=== PATIENT | female | born 1970 | race Caucasian/White ===

== ENCOUNTER → 2019-05-19 15:40 | Outpatient (CLI) | payer MEDICARE, OTHER, SELFPAY ==
[2019-05-19 19:54] LABS: Amphetamine/Metha Screen,Urine Negative ng/ml (<1000); Barbiturates Screen,Urine Negative ng/ml (<200)
[2019-05-19 19:55] LABS: Benzodiazepines Screen,Urine Negative ng/ml (<200)
[2019-05-19 19:56] LABS: Cannabinoid Screen,Urine Negative ng/ml (<50); Cocaine Screen,Urine Negative ng/ml (<300)
[2019-05-19 19:57] LABS: Methadone Screen,Urine Negative ng/ml (<300)
[2019-05-19 19:58] LABS: Opiate Screen,Urine Negative ng/ml (<300); Phencyclidine Screen,Urine Negative ng/ml (<25)
== END ==
PROVIDERS: Visit Provider Nurse Practitioner Family
DX: M25.559 Pain in unspecified hip (principal); Z79.899 Other long term (current) drug therapy
CPT/HCPCS: 80305

== ENCOUNTER → 2019-06-13 08:42 | Outpatient (CLI) | payer MEDICARE, OTHER, SELFPAY ==
--- NOTE | 2019-06-13 08:49 | XR_ITS ---
PROCEDURE: XR HIP RT 2-3V W/PELVIS CLINICAL INDICATION: hip pain Right hip pain COMPARISON: No exams were available for comparison FINDINGS: There are mild osteoarthritic changes of the right hip with some decrease in the joint space and osteophyte formation along the superior and inferior aspect of the acetabulum and femoral head. No fracture or dislocation. No lytic or blastic change. There is some faint increased density over the right iliac fossa which could be due to overlying suture line. Incidental note also made of mild osteoarthritic change of the left hip. IMPRESSION: Osteoarthritis of the hips Dictated by: Kalpesh Hunt MD 06/13/2019 09:46 Electronically signed by Kalpesh Hunt MD in [place] 06/13/2019 09:46
--- NOTE | 2019-06-13 10:05 | XR_ITS ---
PROCEDURE: XR LUMBAR SPINE 2-3V CLINICAL INDICATION: AP Lateral WB COMPARISON: No exams were available for comparison FINDINGS: There is mild levoscoliosis of the lumbar spine. Small anterior osteophytes are present at L2-L3 and L4 with mild degenerative disc disease noted at L4-5. No acute fracture or dislocation. IMPRESSION: Mild degenerative changes, no acute finding Dictated by: Kalpesh Hunt MD 06/13/2019 11:46 Electronically signed by Kalpesh Hunt MD in [place] 06/13/2019 11:46
== END ==
PROVIDERS: PCP Nurse Practitioner Family; Visit Provider Orthopaedic Surgery
DX: M54.9 Dorsalgia, unspecified; M25.551 Pain in right hip
CPT/HCPCS: 72100; 73502

== ENCOUNTER → 2019-06-18 10:20 | Outpatient (CLI) | payer MEDICARE, OTHER, SELFPAY ==
[2019-06-18 10:46] LABS: Basophils # 0.1 K/mm3 (0-0.2); Basophils % 0.5 % (0.1-2.0); Eosinophils # 0.3 K/mm3 (0.0-0.4); Eosinophils % 3.4 % (0.1-12.0); Hematocrit 47.7 % (37.0-47.0); Hemoglobin 14.9 g/dL (12.2-16.2); Lymphocytes # 1.8 K/mm3 (0.7-4.5); Lymphocytes % 18.5 % (10-50); Mean Corpuscular HGB Conc 31.3 g/dL (31.8-35.4); Mean Corpuscular Hemoglobin 30.4 pg (27.0-31.2); Mean Platelet Volume 7.7 fl (7.4-10.4); Monocytes # 0.3 K/mm3 (0.1-1.0); Monocytes % 3.4 % (1.7-9.3); Neutrophils # 7.2 K/mm3 (1.8-7.8); Neutrophils % 74.2 % (37.0-80.0); Platelet Count 222 K/mm3 (142-424); Red Blood Count 4.92 M/mm3 (4.20-5.40); Red Cell Distribution Width 13.3 % (11.5-17.5); White Blood Count 9.7 K/mm3 (4.8-10.8)
[2019-06-18 11:31] LABS: Alanine Aminotransferase 18 U/L (12-78); Albumin Level 4.7 g/dl (3.5-5.0); Albumin/Globulin Ratio 1.8 (1.1-1.8); Alkaline Phosphatase 77 U/L (38-126); Aspartate Amino Transferase 25 U/L (14-36); Bilirubin,Total 0.2 mg/dl (0.2-1.3); Blood Urea Nitrogen 9 mg/dl (7-17); Calcium 10.1 mg/dl (8.4-10.2); Carbon Dioxide 31 mmol/L (22.0-30.0); Chloride 103 mmol/L (98-107); Chol/HDL Ratio 3.3 (1-3.5); Cholesterol 200 mg/dl (140-200); Estimated Glomerular Filt Rate 131 ml/min (>60); GFR (African American) 158 ML/MIN (>60); Globulin 2.6 g/dL (1.3-3.2); Glucose 88 mg/dl (74-100); HDL Cholesterol 60 mg/dl (40-60); Sodium 138 mmol/L (136-145); Total Protein,Serum 7.3 g/dl (6.3-8.2); Triglycerides 148 mg/dl (30-150); VLDL Cholesterol 30 mg/dL (0-40)
[2019-06-18 11:42] LABS: Direct LDL Cholesterol 130.22 mg/dL (100-129)
[2019-06-18 12:02] LABS: Thyroid Stimulating Hormone 1.39 uIU/mL (0.465-4.68)
[2019-06-19 12:56] LABS: Vitamin D 25 Hydroxy 30.5 ng/mL (30.0-100.0)
== END ==
PROVIDERS: Visit Provider Nurse Practitioner Family
DX: M54.9 Dorsalgia, unspecified (principal); E78.5 Hyperlipidemia, unspecified; Z01.89 Encounter for other specified special examinations; R53.83 Other fatigue
CPT/HCPCS: 36415; 80053; 80061; 82652; 84443; 85025

== ENCOUNTER → 2019-06-24 10:36 | Outpatient (POV) | payer MEDICARE, OTHER, SELFPAY ==
[2019-06-24 11:07] VITALS: BP 127/95; PULSE 69; RESP 18; TEMP 36.6; O2SAT 96; BMI 25.7
--- NOTE | 2019-06-24 11:30 | HMH.PMCON ---
Assessment and Plan (1) Degenerative joint disease (DJD) of lumbar spine Current visit: Yes Status: Chronic Qualifiers: Spinal osteoarthritis complication: with radiculopathy Qualified Code(s): M47.26 - Other spondylosis with radiculopathy, lumbar region Category: Medical Code(s): M47.816 - Spondylosis without myelopathy or radiculopathy, lumbar region (2) Lumbar radiculopathy Current visit: Yes Status: Chronic Category: Medical Code(s): M54.16 - Radiculopathy, lumbar region - Assessment and plan all Dx Assessment and Plan for all problems:: We will see the patient back if she is interested in interventional therapies. At this point if she can be maintained on a gabapentin regimen I do believe that that is appropriate. Dr. Cohen has reviewed this note and agrees with this plan of care. This note was dictated using voice recognition software and may contain errors or omissions HPI - Data of Consult Consult date: 06/24/19 Requesting Physician: Mikala Andre APRN Primary Care Provider: Terry Harrington APRN - Consult Narrative Reason for consult: Pain History of present illness: Ms. Farris is a 49 year old female who presents today for consultation in regards to her low back and leg pain. Patient states she is had pain for many years. She is to be in pain management at however she quit some time ago due to the fact that she did not like the injection she was receiving. Patient said that she was managed well on gabapentin 800 mg 1 p.o. 3 times daily. Patient's Saturnino reflects this. Patient and I discussed potential injections and she is uninterested in moving forward with this. Patient can be maintained on a gabapentin regimen with good success and she has appropriate drug screens this should be beneficial for her. I did discuss with her that she could discuss this with her primary care physician but this is an appropriate dosing of medication. She rates her pain today a 9 out of 10 CC: Mikala Andre APRN [facility] History I have reviewed the patient's past medical history: Yes Medical History: Reports:: Asthma, Chronic Obstructive Pulmonary Disease (COPD), Depression, Gastroesophageal Reflux Disease(GERD), Hyperlipidemia, Hypertension Denies:: Cancer, Diabetes Mellitus Type 1, Diabetes Mellitus Type 2, MRSA *Have you ever received a pneumonia vaccine?: No *Have you received a flu vaccine this season?: No Laterality Cases: Bilateral: Carpal Tunnel Release Other Surgeries: Yes: Cholecystectomy, Hernia Repair, Other Amputation: No Fractures: Yes - *Social History Smoking Status: Current every day smoker Tobacco Type: cigarettes # Packs/Day (cigarettes): 1 Alcohol Intake: never Substance Use Type: denies use *Occupational Status:: unemployed Housing: house Household Members: other *Travel in the last 8 weeks: None - Psychiatric History Pschychiatric History:: Reports:: Depression Family Hx:: Heart Attack, Stroke Review of Systems - Review of Systems ROS General: no recent weight change, no fever, no sleep disturbances Respiratory: no cough, no shortness of air, no recurring pulmonary infections Cardiovascular/Peripheral Vascular: No chest pain, No palpitations, no edema, no shortness of breath. Gastrointestinal: no new onset incontinence, normal bowel movements reported Genitourinary: no new onset incontinence Musculoskeletal: Back pain, leg pain Psychiatric: normal mood/ affect Neurological: [denies new onset weakness in extremities], [denies new onset balance issues] Meds Home Medications Medication Instructions Recorded Confirmed Type albuterol sulfate 90 mcg/actuation 2 inh INHALATION Q6H PRN #6.7 g 04/29/19 06/24/19 Rx aerosol inhaler cyclobenzaprine 10 mg tablet 10 mg PO TID PRN #90 tab 06/17/19 06/24/19 Rx Atorvastatin Calcium [Atorvastatin 20 mg PO DAILY 06/24/19 06/24/19 History 20mg Tab] Gabapentin 600 mg PO TID 06/24/19 06/24/19 History
== END ==
PROVIDERS: PCP Nurse Practitioner Family; Visit Provider Clinical Nurse Specialist Family Health
DX: M47.26 Other spondylosis with radiculopathy, lumbar region (principal)
CPT/HCPCS: 99202

== ENCOUNTER → 2019-07-09 12:46 | Outpatient (CLI) | payer MEDICARE, OTHER, SELFPAY ==
[2019-07-09 14:55] VITALS: PULSE 64; PULSE 70
== END ==
PROVIDERS: PCP Nurse Practitioner Family; Visit Provider Nurse Practitioner Family
DX: R06.02 Shortness of breath (principal)
CPT/HCPCS: 94060; 94618; 94640; 94726; 94729

== ENCOUNTER 2019-11-09 11:57 | Emergency (ER) | payer MEDICARE, OTHER, SELFPAY ==
[2019-11-09 12:09] VITALS: BMI 26.6
--- NOTE | 2019-11-09 12:09 | XR_ITS ---
PROCEDURE: XR ANKLE LT MIN 3V CLINICAL INDICATION: INJURY Injury with pain COMPARISON: CR XR TIBIA FIBULA LT 2V from 11/09/2019 CR XR FOOT LT MIN 3V from 11/09/2019 FINDINGS: There is a nondisplaced transverse fracture involving the distal fibula. This is at the epiphyseal region at the level of the ankle joint space. No significant displacement or angulation. The ankle mortise does not appear widened. The proximal mid aspect of the tibia and fibula have an unremarkable appearance. IMPRESSION: Displaced fracture of the distal fibula as described above Dictated by: Kalpesh Hunt MD 11/09/2019 15:05 Kalpesh Hunt MD in [place] 11/09/2019 15:05
--- NOTE | 2019-11-09 12:09 | XR_ITS ---
PROCEDURE: XR FOOT LT MIN 3V CLINICAL INDICATION: INJURY Posttraumatic pain and bruising COMPARISON: CR XR ANKLE LT MIN 3V from 11/09/2019 FINDINGS: There is deformity of the distal aspect of the 1st metatarsal which may be related to prior surgery/bunionectomy with osteoarthritic changes at the 1st MTP joint. On the AP view of the ankle there is a suggestion of avulsion along the medial aspect of the medial cuneiform. This is not duplicated on the foot images however, the positioning is somewhat different. Please correlate with patient's physical exam. IMPRESSION: 1. Prior bunionectomy with osteoarthritic change of the 1st MTP joint. 2. Questionable avulsion fracture of the medial aspect of the medial cuneiform as seen on the ankle images. CT may confirm Dictated by: Kalpesh Hunt MD 11/09/2019 15:08 Kalpesh Hunt MD in [place] 11/09/2019 15:08
[2019-11-09 12:10] VITALS: BP 125/89; PULSE 83; RESP 24; O2SAT 99; BMI 26.6
--- NOTE | 2019-11-09 12:17 | HMH.EDUTC ---
[facility] Disposition Clinical Impression: Fracture of distal fibula Qualifiers: Encounter type: initial encounter Fracture type: closed Fracture morphology: unspecified fracture morphology Laterality: left Qualified Code(s): S82.832A - Other fracture of upper and lower end of left fibula, initial encounter for closed fracture Disposition: Home, Self-Care Condition on Discharge: Good Instructions: DI for Ankle Fracture Additional Instructions: Call orthopedics for an appointment in the morning. Call early (between 8:30-9:00 am) so they can get you scheduled later in the week when swelling has gone down. Let them know I spoke with Dr Diop today. Absolutely no weight bearing on left ankle. Keep foot/ankle elevated and use ice several times today. Referrals: Anmol Doyle MD [Primary Care Provider] - Time of Disposition: 13:01 Medical Decision Making - Saturnino Inquiry Pt receiving controlled substance: No Vital Signs: 11/09/19 12:10 Pulse Rate [Right Brachial] 83 Respiratory Rate 24 Blood Pressure [Right Arm] 125/89 Blood Pressure Mean [Right Arm] 101 Blood Pressure Source [Right Arm] Automatic Cuff Blood Pressure Position [Right Arm] Sitting 02 Sat by Pulse Oximetry 99 Oxygen Delivery Method Room Air Orders (Tests/Meds): ED MEDICATIONS Discontinued Medications Generic Name Dose Route Start Last Admin Trade Name Freq PRN Reason Stop Dose Admin Hydrocodone Bitart/Acetaminophen 1 tab 11/09/19 12:54 [place] 7.5/325mg Tablet PO 11/09/19 12:55 ONCE ONE ORDERS Category Date Time Status Foot XR left minimum 3 views [XR foot LT min 3V] Stat Exams 11/09/19 12:09 Ordered XR ankle LT min 3V Stat Exams 11/09/19 12:09 Ordered XR tibia fibula LT 2V Stat Exams 11/09/19 12:09 Ordered - Radiology Data #1 Image(s): Tib/Fib Image Reviewed: Yes I reviewed the patient's radiology image Preliminary Findings: Abnormal (left distal fibula fx, minimally displaced) - Physician Consults Physician Consulted: Chikis Time: 12:45 Reason -: Orthopedic Eval/Care Comment/Response: Posterior ortho glass splint, ice, elevation, no weight bearing. Call office in am for follow up appt [facility] HPI - General Stated complaint: ao fell in hole 11/08/2019 Time Seen by Provider: 11/09/19 12:18 - History of Present Illness Provider Complaint: Fell in hole last night (11/07) around 2029. States her nephew helped her up and when she put weight on her foot she felt her bones crack. She went ahead and went to bed but was unable to bear weight today so came in. Pain in ankle on the left. Patient denies history of diabetes. She is treated for COPD and HTN. Onset (ago): day(s) (1) Location: left, lower extremity Relieving factors: none Exacerbating factors: none Associated symptoms: denies other symptoms Treatments prior to arrival: none - Related Data Previous Rx's Medication Instructions Recorded albuterol sulfate 90 mcg/actuation 2 inh INHALATION Q6H PRN #6.7 g 04/29/19 aerosol inhaler fluticasone furoate 100 1 inh INHALATION DAILY #28 each 07/25/19 mcg-vilanterol 25 mcg/dose inhalation powder tiotropium bromide 18 mcg capsule 1 cap INHALATION DAILY #30 puff 07/25/19 with inhalation device cetirizine 10 mg tablet 10 mg PO DAILY #30 tab 08/12/19 cyclobenzaprine 10 mg tablet 10 mg PO TID PRN #90 tab 08/12/19 gabapentin 800 mg tablet 800 mg PO TID #90 tab 08/12/19 omeprazole 40 mg capsule,delayed 40 mg PO DAILY #30 cap 08/12/19 release venlafaxine 75 mg capsule,extended 75 mg PO DAILY #90 cap 09/04/19 release 24 hr atorvastatin 20 mg tablet 20 mg PO DAILY #90 tab 10/06/19 levofloxacin 500 mg tablet 500 mg PO DAILY #7 tab 10/27/19 loratadine 10 mg tablet 10 mg PO DAILY #10 tab 10/27/19 prednisone 10 mg tablet 10 mg PO BID #6 tab 10/27/19 prednisone 20 mg tablet 20 mg PO BID #6 tab 10/27/19 Allergies Allergy/AdvReac Type Severity Reaction Status Date / Time No Known Allergies Allergy V
[2019-11-09 13:33] VITALS: BP 125/89; PULSE 83; RESP 24; TEMP 36.7; O2SAT 99
== END 2019-11-09 13:35 | disposition home or self-care (01) ==
PROVIDERS: Emergency Provider Physician Assistant; PCP Internal Medicine Adolescent Medicine
DX: S82.832A Other fracture of upper and lower end of left fibula, initial encounter for closed fracture (principal); W17.2XXA Fall into hole, initial encounter; Y92.017 Garden or yard in single-family (private) house as the place of occurrence of the external cause; J44.9 Chronic obstructive pulmonary disease, unspecified; I10 Essential (primary) hypertension; E78.5 Hyperlipidemia, unspecified; F33.1 Major depressive disorder, recurrent, moderate; K21.9 Gastro-esophageal reflux disease without esophagitis; F17.210 Nicotine dependence, cigarettes, uncomplicated; Z79.899 Other long term (current) drug therapy; Z90.49 Acquired absence of other specified parts of digestive tract
CPT/HCPCS: 29515; G0463; 73590; 73610; 73630; 99203

== ENCOUNTER → 2019-11-13 15:42 | Outpatient (CLI) | payer MEDICARE, OTHER, SELFPAY ==
--- NOTE | 2019-11-13 15:48 | XR_ITS ---
PROCEDURE: XR ANKLE LT MIN 3V Referring Doctor: Mary Cleveland Patient Age:49Y CLINICAL INDICATION: ankle fx fell on Sunday. Persistent bruising and swelling COMPARISON: CR XR TIBIA FIBULA LT 2V from 11/09/2019 CR XR ANKLE LT MIN 3V from 11/09/2019 FINDINGS: . slightly oblique transverse fracture of distal fibula again evident.. Of basically nondisplaced only 1 mm lateral offset of the distal fibular fragment on today's oblique view. There also is a vertical fracture through the posterior malleolus which is better appreciated on today's lateral view. Nondisplaced The medial malleolus appears intact and unremarkable. The dome of the talus intact. Relationships ankle mortise satisfactory.. Tiny fragment projected over the anterior aspect the joint the lateral view the noted could arise from the fibular fracture. Prominent soft tissue swelling is seen overlying the lateral malleolus. IMPRESSION: We again see the nondisplaced fracture distal fibula. Good apposition satisfactory position here The vertical fracture of the posterior malleolus is better appreciated on today's lateral Ankle mortise intact view Dictated by: Talha Brumfield MD 11/13/2019 17:21 Talha Brumfield MD in [place] 11/13/2019 17:21
== END ==
PROVIDERS: PCP Nurse Practitioner Family; Visit Provider Orthopaedic Surgery
DX: S82.839A Other fracture of upper and lower end of unspecified fibula, initial encounter for closed fracture (principal)
CPT/HCPCS: 73610

== ENCOUNTER → 2019-11-20 12:59 | Outpatient (CLI) | payer MEDICARE, OTHER, SELFPAY ==
--- NOTE | 2019-11-20 13:10 | XR_ITS ---
PROCEDURE: XR ANKLE LT MIN 3V CLINICAL INDICATION: out of splint Follow-up fracture COMPARISON: CR XR ANKLE LT MIN 3V from 11/09/2019 CR XR ANKLE LT MIN 3V from 11/13/2019 CR XR TIBIA FIBULA LT 2V from 11/20/2019 FINDINGS: There is a nondisplaced fracture involving the distal fibula at the level of the ankle joint. Nondisplaced longitudinal fracture involves the distal tibia posteriorly.. IMPRESSION: No change nondisplaced distal fibular and distal tibial fractures Dictated by: Kalpesh Hunt MD 11/20/2019 16:29 Kalpesh Hunt MD in [place] 11/20/2019 16:29
== END ==
PROVIDERS: PCP Nurse Practitioner Family; Visit Provider Orthopaedic Surgery
DX: S82.839A Other fracture of upper and lower end of unspecified fibula, initial encounter for closed fracture (principal)
CPT/HCPCS: 73590; 73610

== ENCOUNTER → 2019-12-01 12:59 | Outpatient (CLI) | payer MEDICARE, OTHER, SELFPAY ==
--- NOTE | 2019-12-01 13:05 | XR_ITS ---
PROCEDURE: XR ANKLE LT MIN 3V CLINICAL INDICATION: left ankle fracture COMPARISON: CR XR ANKLE LT MIN 3V from 11/20/2019 FINDINGS: There is faint callus formation seen at the lateral border of the distal fibular fracture when compared to the most recent study. The distal fibular fracture remains essentially nondisplaced. The distal tibial fracture is stable. The ankle mortise appears normal. IMPRESSION: Very early callus formation seen at the distal fibular fracture site, alignment remains satisfactory Dictated by: Dr. Boyd Clemens MD 12/01/2019 14:09 Dr. Boyd Clemens MD in [place] 12/01/2019 14:09
== END ==
PROVIDERS: PCP Nurse Practitioner Family; Visit Provider Orthopaedic Surgery
DX: S82.842A Displaced bimalleolar fracture of left lower leg, initial encounter for closed fracture (principal)
CPT/HCPCS: 73610

== ENCOUNTER → 2019-12-19 09:49 | Outpatient (CLI) | payer MEDICARE, OTHER, SELFPAY ==
--- NOTE | 2019-12-19 10:21 | XR_ITS ---
PROCEDURE: XR ANKLE LT MIN 3V CLINICAL INDICATION: Lt ankle FX FU Follow-up fracture COMPARISON: CR XR ANKLE LT MIN 3V from 11/09/2019 CR XR ANKLE LT MIN 3V from 11/13/2019 CR XR ANKLE LT MIN 3V from 11/20/2019 DX XR ANKLE LT MIN 3V from 12/01/2019 FINDINGS: There is a healing nondisplaced fracture involving the distal fibula with developing callus formation with good alignment. The ankle mortise does not appear widened. IMPRESSION: Healing distal fibular fracture Dictated by: Kalpesh Hunt MD 12/19/2019 10:39 Kalpesh Hunt MD in [place] 12/19/2019 10:39
== END ==
PROVIDERS: PCP Internal Medicine Adolescent Medicine; Visit Provider Orthopaedic Surgery
DX: S82.843A Displaced bimalleolar fracture of unspecified lower leg, initial encounter for closed fracture (principal)
CPT/HCPCS: 73610

== ENCOUNTER 2019-12-19 11:40 | Outpatient (RCR) | payer MEDICARE, OTHER, SELFPAY | END 2019-12-19 12:15 | disposition home or self-care (01) | LOC: PT 11:40 | PROVIDERS: Visit Provider Orthopaedic Surgery | DX: S82.843A Displaced bimalleolar fracture of unspecified lower leg, initial encounter for closed fracture (principal) | CPT/HCPCS: 97760 ==

== ENCOUNTER → 2020-05-04 15:48 | Outpatient (CLI) | payer MEDICARE, OTHER, SELFPAY | PROVIDERS: Visit Provider Nurse Practitioner Family | DX: N39.0 Urinary tract infection, site not specified (principal) | CPT/HCPCS: 87086 ==

== ENCOUNTER → 2020-12-23 10:48 | Outpatient (CLI) | payer MEDICARE, OTHER, SELFPAY ==
--- NOTE | 2020-12-23 10:48 | CT_ITS ---
PROCEDURE: CT ABDOMEN PELVIS WO CON CLINICAL INDICATION: abd pain Right lower quadrant pain COMPARISON: No exams were available for comparison TECHNIQUE: Axial images obtained with sagittal and coronal reformats. All CT scans at the facility use one or more dose reduction, viz: automated exposure control, ma/kV adjustment per patient size (including targeted exams where dose is matched to indication, i.e. head), or iterative reconstruction technique. FINDINGS: LOWER THORAX: No acute finding ABDOMEN & PELVIS: The liver, spleen, adrenal glands pancreas, and kidneys have an unremarkable unenhanced appearance. No radiopaque gallstones. No intestinal obstruction or free air. Suspected prior appendectomy. There is colonic diverticulosis but no evidence of diverticulitis. No pelvic mass or abnormal fluid collection. Postsurgical changes anterior abdominal wall. No acute bony findings. There is minimal dilatation of the mid aspect of the abdominal aorta chest inferior to the renal arteries measuring approximately 2.4 cm in transverse dimension. Atherosclerotic changes are present involving the aortoiliac vessels. There are mild degenerative changes of the hips. IMPRESSION: 1. No acute finding. 2. Colonic diverticulosis. No evidence of diverticulitis Dictated by: Kalpesh Hunt MD 12/25/2020 10:02 Kalpesh Hunt MD in [place] 12/25/2020 10:02
== END ==
PROVIDERS: PCP Nurse Practitioner Family; Visit Provider Family Medicine
DX: R10.31 Right lower quadrant pain (principal)
CPT/HCPCS: 74176

== ENCOUNTER → 2021-02-15 09:16 | Outpatient (CLI) | payer MEDICARE, OTHER, SELFPAY | PROVIDERS: Visit Provider Surgery | DX: Z20.822 Contact with and (suspected) exposure to COVID-19 (principal) | CPT/HCPCS: C9803; U0003; U0005 ==

== ENCOUNTER 2021-02-16 08:52 | Day surgery (SDC) | payer MEDICARE, OTHER, SELFPAY ==
[2021-02-14 10:18] VITALS: BMI 30.2
[2021-02-16 09:53] VITALS: BP 124/73; PULSE 71; RESP 16; TEMP 37.2; O2SAT 99
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
--- NOTE | 2021-02-16 10:33 | HMH.ANESCL ---
[facility] Anesthesia Checklist - Patient Identification Patient Identification: Arm Band - Structural Data Admitted From: Home Planned Operative Procedure/s: EGD/Colonoscopy Consent for Planned Operative Procedure(s) Verified: Yes Verified Documents: Surgical Consent, History and Physical - NPO Status Verified Time NPO: 00:00 - Additional verifications Anesthesia Reactions: No - Airway Assessment C-Spine Mobility Assessed: Yes (mp2) TMJ Mobility Assessed: Yes Dentition: Good Dentition - Neurological Assessment Level of Consciousness: Awake, Alert - Anesthesia Plan Anesthesia Risk discussed: Yes Anesthesia Plan: Verified ASA Class: III Anesthesia Type: MAC [facility] History I have reviewed the patient's past medical history: Yes Medical History: Reports:: Asthma, Chronic Obstructive Pulmonary Disease (COPD), Depression, Diabetes Mellitus Type 2, Gastroesophageal Reflux Disease(GERD), Hyperlipidemia, Hypertension Denies:: Cancer, Diabetes Mellitus Type 1, Internal Pacemaker, MRSA, Seizures *Have you ever received a pneumonia vaccine?: No *Have you received a flu vaccine this season?: Yes Anesthesia experience/problems:: nac Laterality Cases: Bilateral: Carpal Tunnel Release Other Surgeries: Yes: Cholecystectomy, Colonoscopy, Hernia Repair, Other. No: Pacemaker Amputation: No Fractures: Yes - *Social History Last grade of school completed: High school graduate Smoking Status: Current every day smoker Tobacco Type: cigarettes # Packs/Day (cigarettes): 1 Alcohol Intake: never Substance Use Type: denies use *Occupational Status:: disabled Housing: house Household Members: significant other *Travel in the last 8 weeks: None - Psychiatric History Pschychiatric History:: Reports:: Depression Family Hx:: Cancer, Heart Attack, Stroke
[2021-02-16 10:38] VITALS: O2SAT 97
[2021-02-16 11:17] VITALS: BP 89/63; PULSE 64; RESP 18; TEMP 36.2; O2SAT 95
[2021-02-16 11:30] VITALS: BP 113/81; PULSE 69; RESP 18; O2SAT 95
[2021-02-16 11:45] VITALS: BP 118/50; PULSE 72; RESP 18; O2SAT 96
[2021-11-10 10:56] LABS: POC Glucose,Bedside 83 (70-110)
== END 2021-02-16 11:45 | disposition home or self-care (01) ==
LOC: OUTP 08:55
PROVIDERS: PCP Nurse Practitioner Family; Visit Provider Surgery
PROC: 0DJ08ZZ Inspection of Upper Intestinal Tract, Via Natural or Artificial Opening Endoscopic (ICD-10-PCS; CPT 43235; principal; 2021-02-16 10:30)
DX: K29.60 Other gastritis without bleeding (principal); K57.32 Diverticulitis of large intestine without perforation or abscess without bleeding; K56.2 Volvulus; J44.9 Chronic obstructive pulmonary disease, unspecified; E11.9 Type 2 diabetes mellitus without complications; F41.9 Anxiety disorder, unspecified; K21.9 Gastro-esophageal reflux disease without esophagitis; E78.5 Hyperlipidemia, unspecified; I10 Essential (primary) hypertension
CPT/HCPCS: 43239; 45378; 82962; 87339; 88305; 88313

== ENCOUNTER → 2021-06-23 14:00 | Outpatient (CLI) | payer MEDICARE, OTHER, SELFPAY ==
[2021-06-23 17:47] LABS: Basophils # 0.1 K/mm3 (0-0.2); Basophils % 0.7 % (0.1-2.0); Eosinophils # 0.2 K/mm3 (0.0-0.4); Eosinophils % 2.3 % (0.1-12.0); Hematocrit 43.1 % (37.0-47.0); Hemoglobin 14.7 g/dL (12.2-16.2); Lymphocytes # 2.3 K/mm3 (0.7-4.5); Lymphocytes % 31.8 % (10-50); Mean Corpuscular HGB Conc 34.1 g/dL (31.8-35.4); Mean Corpuscular Hemoglobin 34.2 pg (27.0-31.2); Mean Corpuscular Volume 100.4 fl (81-99); Mean Platelet Volume 10.3 fl (7.4-10.4); Monocytes # 0.4 K/mm3 (0.1-1.0); Monocytes % 5.2 % (1.7-9.3); Neutrophils # 4.4 K/mm3 (1.8-7.8); Platelet Count 213 K/mm3 (142-424); Red Blood Count 4.29 M/mm3 (4.20-5.40); Red Cell Distribution Width 13.2 % (11.5-17.5); White Blood Count 7.4 K/mm3 (4.8-10.8)
[2021-06-23 17:52] LABS: Alanine Aminotransferase 27 U/L (12-78); Albumin Level 4.1 g/dl (3.5-5.0); Albumin/Globulin Ratio 1.6 (1.1-1.8); Alkaline Phosphatase 82 U/L (38-126); Anion Gap 14.1 mEq/L (5-15); Aspartate Amino Transferase 41 U/L (14-36); Blood Urea Nitrogen 13 mg/dl (7-17); Calcium 9.1 mg/dl (8.4-10.2); Carbon Dioxide 23 mmol/L (22.0-30.0); Chloride 102 mmol/L (98-107); Cholesterol 214 mg/dl (140-200); Estimated Glomerular Filt Rate 105 ml/min (>60); GFR (African American) 127 ML/MIN (>60); Globulin 2.6 g/dL (1.3-3.2); Glucose 105 mg/dl (74-100); HDL Cholesterol 43 mg/dl (40-60); Potassium 4.1 mmoL/L (3.5-5.1); Sodium 135 mmol/L (136-145); Total Protein,Serum 6.7 g/dl (6.3-8.2)
[2021-06-23 17:56] LABS: Bilirubin,Total < 0.1 mg/dl (0.2-1.3)
[2021-06-23 18:03] LABS: Direct LDL Cholesterol 72.02 mg/dL (100-129)
[2021-06-23 18:04] LABS: Triglycerides 850 mg/dl (30-150)
[2021-06-23 18:09] LABS: 25-OH Vitamin D, Total 41.3 ng/mL (30-100); T4 (Thyroxine) 5.9 ug/dl (5.53-11.0)
[2021-06-23 18:23] LABS: Thyroid Stimulating Hormone 2.06 uIU/mL (0.465-4.68)
== END ==
PROVIDERS: PCP Nurse Practitioner Family; Visit Provider Nurse Practitioner Family
DX: G89.29 Other chronic pain (principal); M54.9 Dorsalgia, unspecified; Z00.00 Encounter for general adult medical examination without abnormal findings; Z79.899 Other long term (current) drug therapy; E66.3 Overweight; Z68.30 Body mass index [BMI] 30.0-30.9, adult
CPT/HCPCS: 80053; 80061; 82306; 84436; 84443; 85025

== ENCOUNTER → 2021-09-30 14:15 | Outpatient (CLI) | payer MEDICARE, OTHER, SELFPAY ==
[2021-09-30 19:13] LABS: Amphetamine/Metha Screen,Urine Negative ng/ml (<1000); Barbiturates Screen,Urine Negative ng/ml (<200)
[2021-09-30 19:14] LABS: Benzodiazepines Screen,Urine Negative ng/ml (<200); Cannabinoid Screen,Urine Negative ng/ml (<50)
[2021-09-30 19:15] LABS: Cocaine Screen,Urine Negative ng/ml (<300)
[2021-09-30 19:16] LABS: Methadone Screen,Urine Negative ng/ml (<300); Opiate Screen,Urine Negative ng/ml (<300)
[2021-09-30 19:17] LABS: Phencyclidine Screen,Urine Negative ng/ml (<25)
== END ==
PROVIDERS: PCP Nurse Practitioner Family; Visit Provider Nurse Practitioner Family
DX: M47.816 Spondylosis without myelopathy or radiculopathy, lumbar region (principal)
CPT/HCPCS: 80305

== ENCOUNTER → 2022-05-26 11:35 | Outpatient (CLI) | payer MEDICARE, OTHER, SELFPAY ==
[2022-05-26 13:30] LABS: Basophils % 0.6 % (0.1-2.0); Eosinophils # 0.2 K/mm3 (0.0-0.4); Eosinophils % 2.4 % (0.1-12.0); Hematocrit 42.4 % (37.0-47.0); Hemoglobin 13.9 g/dL (12.2-16.2); Lymphocytes # 2.3 K/mm3 (0.7-4.5); Lymphocytes % 29.8 % (10-50); Mean Corpuscular HGB Conc 32.8 g/dL (31.8-35.4); Mean Corpuscular Hemoglobin 30.6 pg (27.0-31.2); Mean Corpuscular Volume 93.3 fl (81-99); Mean Platelet Volume 9.1 fl (7.4-10.4); Monocytes # 0.4 K/mm3 (0.1-1.0); Monocytes % 4.5 % (1.7-9.3); Neutrophils # 4.9 K/mm3 (1.8-7.8); Neutrophils % 62.8 % (37.0-80.0); Platelet Count 264 K/mm3 (142-424); Red Blood Count 4.55 M/mm3 (4.20-5.40); Red Cell Distribution Width 12.6 % (11.5-17.5); White Blood Count 7.9 K/mm3 (4.8-10.8)
[2022-05-30 19:46] LABS: Alpha-1-Antitrypsin 152 mg/dL (101-187)
[2022-06-01 00:05] LABS: D001-IgE D pteronyssinus <0.10 kU/L (Class 0); D002-IgE D farinae <0.10 kU/L (Class 0); E001-IgE Cat Dander <0.10 kU/L (Class 0); E005-IgE Dog Dander <0.10 kU/L (Class 0); E072-IgE Mouse Urine <0.10 kU/L (Class 0); G002-IgE Bermuda Grass <0.10 kU/L (Class 0); G006-IgE Timothy Grass <0.10 kU/L (Class 0); I006-IgE Cockroach, German <0.10 kU/L (Class 0); Immunoglobulin E, Total 68 IU/mL (6-495); M001-IgE Penicillium chrysogen <0.10 kU/L (Class 0); M002-IgE Cladosporium herbarum <0.10 kU/L (Class 0); M003-IgE Aspergillus fumigatus <0.10 kU/L (Class 0); M006-IgE Alternaria alternata <0.10 kU/L (Class 0); T001-IgE Maple/Box Elder <0.10 kU/L (Class 0); T003-IgE Common Silver Birch <0.10 kU/L (Class 0); T006-IgE Cedar, Mountain <0.10 kU/L (Class 0); T007-IgE Oak, White <0.10 kU/L (Class 0); T008-IgE Elm, American <0.10 kU/L (Class 0); T010-IgE Walnut <0.10 kU/L (Class 0); T011-IgE Maple Leaf Sycamore <0.10 kU/L (Class 0); T014-IgE Cottonwood <0.10 kU/L (Class 0); T015-IgE Ash, White <0.10 kU/L (Class 0); T022-IgE Pecan, Hickory <0.10 kU/L (Class 0); T070-IgE White Mulberry <0.10 kU/L (Class 0); W001-IgE Ragweed, Short <0.10 kU/L (Class 0); W011-IgE Thistle, Russian <0.10 kU/L (Class 0); W014-IgE Pigweed, Common <0.10 kU/L (Class 0); W018-IgE Sheep Sorrel <0.10 kU/L (Class 0)
== END ==
PROVIDERS: PCP Nurse Practitioner Family; Visit Provider Internal Medicine Pulmonary Disease
DX: J45.909 Unspecified asthma, uncomplicated (principal)
CPT/HCPCS: 36415; 82103; 82104; 82785; 85025; 86003

== ENCOUNTER 2022-10-12 12:33 | Day surgery (SDC) | payer MEDICARE, OTHER, SELFPAY ==
[2022-09-15 14:14] VITALS: BMI 29.9
[2022-10-12 12:50] VITALS: BP 141/87; PULSE 83; RESP 18; TEMP 36.3; O2SAT 95
--- NOTE | 2022-10-12 12:58 | P.PNANES_ITS ---
[facility] Disclaimer: The information contained in this section may have been updated after the patient was seen, as this information can be updated by other users. Medical History COPD (chronic obstructive pulmonary disease) Dyspnea on exertion History of environmental allergies Screening for lung cancer Smoking greater than 30 pack years Tobacco abuse counseling Tobacco abuse disorder Surgical History History of carpal tunnel release History of cholecystectomy Hx of hernia repair Family History Other Cancer Heart attack Stroke Social History Smoking Status: Current every day smoker tobacco type: cigarettes packs per day: 1 second hand exposure: Yes alcohol intake: never substance use type: denies use current occupational status: disabled Travel in the last 8 weeks: None household members: significant other housing: house lives independently: No marital status: education level: high school current occupational exposures/hazards: No caffeine: Yes do you feel safe at home: Yes victim of physical abuse: No victim of emotional abuse: No victim of sexual abuse: No would you like helpful sources: No [facility] Anesthesia Checklist Patient Identification Patient Identification: Arm Band and Verbal (Name & ) Structural Data Admitted From: Home Planned Operative Procedure/s: EGD Consent for Planned Operative Procedure(s) Verified: Yes Verified Documents: Surgical Consent NPO Status Verified Time NPO: 07:30 Additional verifications Anesthesia Reactions: No Airway Assessment Mallampati Score:: Class I C-Spine Mobility Assessed: Yes TMJ Mobility Assessed: Yes Dentition: Good Dentition Neurological Assessment Level of Consciousness: Awake and Alert Hx Seizures: No Anesthesia Plan Anesthesia Risk discussed: Yes ASA Class: III Anesthesia Type: IV sedation
--- NOTE | 2022-10-12 13:02 | SUR.PREOP ---
Informed Clemencia Rob TELEPHOTO ENGINEER that pt ate this morning at 0800. TELEPHOTO ENGINEER discussed with pt and agreed ok to go ahead with procedure.
[2022-10-12 14:44] VITALS: O2SAT 95
[2022-10-12 15:02] VITALS: BP 88/55; PULSE 72; RESP 14; TEMP 36.2; O2SAT 99
--- NOTE | 2022-10-12 15:08 | HMH.SCOPE ---
Procedure: Date: 10/12/22 Patient Date of :: 1970 Procedure Performed:: EGD & biopsies Indications:: Abdominal pain, nausea/vomiting Performing Provider:: Bernarda Coleman MD Referring Provider:: Merary Coleman APRN Sedation:: Propofol Procedure:: The gastroscope was gently passed through the incisoral orifice into the oral cavity and under direct visualization the esophagus was intubated. The endoscope was passed down the esophagus, through the stomach, and into the duodenum. Color, texture, mucosa, and anatomy of the esophagus, stomach, and duodenum were carefully examined with the scope. Findings:: Oropharynx: normal Esophagus: normal EG Junction: intact at 40 cm Cardia: normal Fundus: normal Body: normal Antrum: normal, biopsies obtained for h.pylori Duodenal bulb: normal Duodenum (second and third portion): normal Impression: Overall normal EGD. No evidence of outlet obstruction. Polypharmacy Specimens:: Gastric Recommendations:: Consider decreasing daily medication load Complications:: None Estimated blood obtained (mL): 0 Colonoscopy Component Colonoscopy Component Was a colonoscopy performed during today's procedure?: No
[2022-10-12 15:12] VITALS: BP 96/72; PULSE 73; RESP 17; O2SAT 99
[2022-10-12 15:32] VITALS: BP 98/72; PULSE 71; RESP 17; O2SAT 99
== END 2022-10-12 15:38 | disposition home or self-care (01) ==
PROVIDERS: PCP Nurse Practitioner Family; Visit Provider Internal Medicine Gastroenterology
PROC: 0DJ08ZZ Inspection of Upper Intestinal Tract, Via Natural or Artificial Opening Endoscopic (ICD-10-PCS; CPT 43235; principal; 2022-10-12 14:00)
DX: K21.9 Gastro-esophageal reflux disease without esophagitis (principal); R10.9 Unspecified abdominal pain; R11.2 Nausea with vomiting, unspecified
CPT/HCPCS: 43239; 88305

== ENCOUNTER → 2022-11-14 10:52 | Outpatient (CLI) | payer MEDICARE, OTHER, SELFPAY ==
--- NOTE | 2022-11-14 10:52 | MR_ITS ---
FINAL REPORT CLINICAL HISTORY: Tremors FINDINGS: Multiplanar MR imaging of the brain was performed without contrast. There is no evidence of intracranial hemorrhage or mass. The ventricular size is normal. There is no evidence of shift of the midline structures. No abnormal extra-axial fluid collection is identified. The posterior fossa and brainstem have an unremarkable appearance. No area of abnormal restricted diffusion is identified. Normal major vessel vascular flow voids are seen. IMPRESSION: Unremarkable brain with no acute intracranial abnormality. Reviewed, Interpreted and Dictated by Campbell Wasserman III, MD Transcribed by Ellie Kennedy Authenticated and [facility]
== END ==
PROVIDERS: PCP Nurse Practitioner Family; Visit Provider Nurse Practitioner Family
DX: D49.6 Neoplasm of unspecified behavior of brain (principal); R25.1 Tremor, unspecified
CPT/HCPCS: 70551

== ENCOUNTER → 2022-12-20 17:00 | Outpatient (CLI) | payer MEDICARE, OTHER, SELFPAY | PROVIDERS: PCP Nurse Practitioner Family; Visit Provider Nurse Practitioner Family | DX: R05.9 Cough, unspecified (principal); R09.81 Nasal congestion; R06.2 Wheezing | CPT/HCPCS: 87635 ==

== ENCOUNTER → 2022-12-29 12:36 | Outpatient (CLI) | payer MEDICARE, OTHER, SELFPAY ==
--- NOTE | 2022-12-29 12:42 | XR_ITS ---
FINAL REPORT CLINICAL HISTORY: pain in rt shoulder FINDINGS: RIGHT SHOULDER Three views demonstrate no acute fracture or dislocation. The visualized joint spaces are normally aligned. There are mild hypertrophic changes of the acromioclavicular joint. The soft tissues are unremarkable. IMPRESSION: No acute process. Reviewed, Interpreted and Dictated by Mat Singleton MD Transcribed by Moon Zamora Authenticated and [facility]
== END ==
PROVIDERS: PCP Nurse Practitioner Family; Visit Provider Nurse Practitioner Family
DX: M25.511 Pain in right shoulder (principal)
CPT/HCPCS: 73030

== ENCOUNTER → 2023-01-29 11:55 | Outpatient (CLI) | payer MEDICARE, OTHER, SELFPAY ==
[2023-01-29 12:43] LABS: Barbiturates Screen,Urine Negative ng/ml (<200)
[2023-01-29 12:44] LABS: Amphetamine/Metha Screen,Urine Negative ng/ml (<1000)
[2023-01-29 13:17] LABS: Cannabinoid Screen,Urine Negative ng/ml (<50)
[2023-01-29 13:18] LABS: Benzodiazepines Screen,Urine Negative ng/ml (<200)
[2023-01-29 13:19] LABS: Cocaine Screen,Urine Negative ng/ml (<300); Phencyclidine Screen,Urine Negative ng/ml (<25)
[2023-01-29 13:20] LABS: Opiate Screen,Urine Negative ng/ml (<300)
[2023-01-29 14:15] LABS: Methadone Screen,Urine Negative ng/ml (<300)
== END ==
PROVIDERS: PCP Nurse Practitioner Family; Visit Provider Family Medicine
DX: M47.26 Other spondylosis with radiculopathy, lumbar region (principal)
CPT/HCPCS: 80305

== ENCOUNTER 2023-02-09 10:00 | Outpatient (RCR) | payer MEDICARE, OTHER, SELFPAY ==
--- NOTE | 2023-01-15 11:14 | HMH.OTOPEV ---
OT Inpatient Evaluation Rehab OT Outpatient Eval Start: 01/15/23 10:26 Freq: Status: Active Protocol: Document 01/15/23 10:26 RMJENNIFER (Rec: 01/15/23 11:14 JENNIFER [id number]) E-signed By Gerald Crespo, OT Outpatient Therapy Subjective History Subjective History Pt is a 52 year old female who reports to therapy for initial evaluation to right shoulder. Pt reports she does not recall a specific injury to right shoulder, but it started hurting her ~2-3 months ago. However, pt does explain she falls often and her right shoulder pain could have been caused by one of her many falls. At this time, she has not had a MRI, but has had an X-ray with no acute findings. She has seen ortho and they provided her with a cortizone injection. Since the injection, pt does not feel her shoulder pain has improved. Pt does demonstrate with significant decline in AROM and strength in right shoulder. Pt will continue to be seen twice a week in order to address all right shoulder deficits. New diagnosis of cancer in past 12 No months? Chief Complaint Pain,Stiff,Weakness Symptom Type Ache,Throb,Sharp,Dull Symptoms Relieved By Rest/Positioning Symptoms Aggravated By Physical Activity,Lifting Prior Functional Limitations None Current Functional Limitations Reaching,Lifting,Housework, Dressing,Driving,Sleeping, Recreation Activity Symptom Description Constant but Variable, Intermittent,Activity Dependent Level of pain today (0-10) 3 Pain scale - at its best (0-10) 2 Pain scale - at its worst (0-10) 10 Shoulder/Elbow Eval Shoulder Objective Measurements Shoulder ROM Right Shoulder Abduction Active Range of 96 degrees Motion (degrees) Shoulder Flexion Active Range of Motion 100 degrees (degrees) Query Text: Shoulder External Rotation Active Range 65 degrees of Motion (degrees) Shoulder Internal Rotation Active Range 50 degrees of Motion (degrees) Shoulder MMT Shoulder Abduction Strength Grade 3 Fair Shoulder Extension Strength Grade 3 Fair Shoulder Flexion Strength Grade 3 Fair Shoulder External Rotation Strength 3 Fair Grade Shoulder Internal Rotation Strength 3 Fair Grade Shoulder Strength Patient Testing Sitting Position Shoulder Special Tests impingement sign present shoulder exam right standard Shoulder Empty Can (Supraspinatus) Test Positive Right Shoulder Goddard-Wilder Impingement Positive Right Test Shoulder Neer Impingement Test Positive Right Elbow Objective Measurements QuickDASH Activities Please rate your ability to do the following activities in the last week by selecting the number below the appropriate response. 1. Open a tight or new jar. 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 3. Carry a shopping bag or briefcase. Mild difficulty 4. Wash your back. Severe difficulty 5. Use a knife to cut food. No difficulty 6. Recreational activities in which you Moderate difficulty take some force or impact through your arm, shoulder, or hand (e.g., golf, hammering, tennis, etc.). 7. During the past week, to what extent Moderately has your arm, shoulder or hand problem interfered with your normal social activities with family, friends, neighbors or groups? 8. During the past week, were you Very limited limited in your work or other regular daily activites as a result of your arm, shoulder or hand problem? 9. Arm, shoulder or hand pain. Mild 10. Tingling (pins and needles) in your Mild arm, shoulder or hand. 11. During the past week, how much Moderate difficulty difficulty have you had sleeping because of the pain in your arm, shoulder or hand? Quick DASH 29 OT Outpatient Assessment Impairments Problems/Impairments Palpation Tenderness,Impaired Range of Motion,Impaired Strength,Impaired Endurance, Impaired Lifting,Impaired Household Care,Impaired Work Activities,Subjective C/O Pain Prognosis Rehab Potential Good Clinical Impression Consistent with Diagnosis Yes Short Term Goals Number of Weeks 3 Increase Range of Motion Yes: Flex: 120 Abd: 110 ER: 75 IR: 60 Increase Strength Yes: 3+/5 throughout right shoulder Increase Endurance Yes: Pt will tolerate R shoulder exercises for ~20 minutes prior to rest. Decrease Subjective C/O Pain Yes: 6/10 at worst Patient to be Ind w/ HEP Yes: AAROM exercises; pendulums Improve Quick Dash Score Yes: 25 or below Rubber Moulding Machine Operator Goals Number of Weeks 6 Increase Range of Motion Yes: Flex: 130 Abd: 120 ER: 80 IR: 65 Increase Strength Yes: 4-/5 throughout R shoulder Increase Endurance Yes: Pt will tolerate R shoulder exercises for ~30 minutes prior to rest. Decrease Subjective C/O Pain Yes: 3/10 at worst Patient to be Ind w/ Advanced HEP Yes: Advanced strengthening Improve Quick Dash Score Yes: 20 or below Outpatient Therapy Plan of Care Treatment Plan May Include Therapeutic Exercise Including Home Yes Exercise Program Manual Therapy Techniques Yes Neuromuscular Re-education Yes Therapeutic Activities to Return to Yes Previous Functional/Work Level Thermal Modalities Yes Electrical Stimulation Yes Ultrasound/Phonophoresis Yes Iontophoresis Yes Parrafin Yes Orthotics/Bracing/Splinting Yes Massage Yes Eval/Re-Eval Yes Frequency Times per week 2 Duration Number of Weeks 6 Addendums This patient is a candidate for social No or vocational rehab? Patient/Guardian verbally acknowledges Yes understanding of treatment program and consents to further treatment? Patient/Guardian verbally acknowledges Yes understanding of diagnosis, prognosis and goals for treatment? Eval Complexity OT Charge 26253 - Moderate Complexity PHYSICIAN CERTIFICATION: I certify the specified therapy services for Vivi Farris are required, authorized, and reviewed every 30 days.
== END 2023-02-09 11:00 | disposition home or self-care (01) ==
LOC: OT 10:00
PROVIDERS: PCP Nurse Practitioner Family; Visit Provider Orthopaedic Surgery
DX: M25.511 Pain in right shoulder (principal); M75.41 Impingement syndrome of right shoulder
CPT/HCPCS: 97010; 97014; 97110; 97140; 97166; G0283

== ENCOUNTER 2023-02-28 12:34 | Outpatient (CLI) | payer MEDICARE, OTHER, SELFPAY ==
[2023-02-28 13:28] LABS: Amphetamine/Metha Screen,Urine Negative ng/ml (<1000)
[2023-02-28 13:29] LABS: Barbiturates Screen,Urine Negative ng/ml (<200); Benzodiazepines Screen,Urine Negative ng/ml (<200)
[2023-02-28 13:30] LABS: Cannabinoid Screen,Urine Negative ng/ml (<50); Cocaine Screen,Urine Negative ng/ml (<300)
[2023-02-28 13:31] LABS: Methadone Screen,Urine Negative ng/ml (<300)
[2023-02-28 13:32] LABS: Opiate Screen,Urine Negative ng/ml (<300)
[2023-02-28 13:33] LABS: Phencyclidine Screen,Urine Negative ng/ml (<25)
[2023-03-07 23:08] LABS: Gabapentin,Urine 299.1 ug/mL (.)
== END 2023-02-28 23:59 ==
LOC: LAB.DROPOF 12:34
PROVIDERS: PCP Nurse Practitioner Family; Visit Provider Nurse Practitioner Family
DX: Z79.899 Other long term (current) drug therapy (principal)
CPT/HCPCS: 80307

== ENCOUNTER 2023-03-26 09:10 | Outpatient (CLI) | payer MEDICARE, OTHER, SELFPAY ==
[2023-03-26 09:53] LABS: Basophils % 0.3 % (0.1-2.0); Eosinophils # 0.2 K/mm3 (0.0-0.4); Eosinophils % 1.8 % (0.1-12.0); Hematocrit 40.3 % (37.0-47.0); Hemoglobin 13.7 g/dL (12.2-16.2); Lymphocytes # 2.5 K/mm3 (0.7-4.5); Lymphocytes % 22.5 % (10-50); Mean Corpuscular HGB Conc 34.1 g/dL (31.8-35.4); Mean Corpuscular Hemoglobin 32.8 pg (27.0-31.2); Mean Corpuscular Volume 96.1 fl (81-99); Mean Platelet Volume 8.3 fl (7.4-10.4); Monocytes # 0.3 K/mm3 (0.1-1.0); Monocytes % 2.7 % (1.7-9.3); Neutrophils % 72.7 % (37.0-80.0); Platelet Count 232 K/mm3 (142-424); Red Blood Count 4.19 M/mm3 (4.20-5.40); White Blood Count 11.1 K/mm3 (4.8-10.8)
[2023-03-26 10:50] LABS: Chloride 106 mmol/L (98-107); Potassium 3.9 mmoL/L (3.5-5.1); Sodium 137 mmol/L (136-145)
[2023-03-26 11:19] LABS: Thyroid Stimulating Hormone 1.47 uIU/mL (0.465-4.68)
[2023-03-26 11:59] LABS: Folate 8.36 ng/mL
[2023-03-26 14:13] LABS: Alanine Aminotransferase 23 U/L (12-78); Albumin Level 3.9 g/dl (3.5-5.0); Albumin/Globulin Ratio 1.6 (1.1-1.8); Alkaline Phosphatase 84 U/L (38-126); Anion Gap 8.9 mEq/L (5-15); Aspartate Amino Transferase 28 U/L (14-36); Bilirubin,Total 0.5 mg/dl (0.2-1.3); Blood Urea Nitrogen 7 mg/dl (7-17); Carbon Dioxide 26 mmol/L (22.0-30.0); Estimated Glomerular Filt Rate 166 ml/min (>60); GFR (African American) 201 ML/MIN (>60); Globulin 2.4 g/dL (1.3-3.2); Glucose 95 mg/dl (74-100); Total Protein,Serum 6.3 g/dl (6.3-8.2)
[2023-03-26 15:03] LABS: Vitamin B12 197 pg/mL (239-931)
[2023-03-27 07:12] LABS: Ceruloplasmin 24.7 mg/dL (19.0-39.0)
== END 2023-03-26 23:59 ==
LOC: RAD 09:11
PROVIDERS: PCP Nurse Practitioner Family; Visit Provider Nurse Practitioner Family
DX: F39 Unspecified mood [affective] disorder (principal); G47.8 Other sleep disorders; G47.9 Sleep disorder, unspecified; I10 Essential (primary) hypertension; R06.83 Snoring; R25.1 Tremor, unspecified; R40.0 Somnolence; Z72.0 Tobacco use; Z87.828 Personal history of other (healed) physical injury and trauma; Z87.898 Personal history of other specified conditions
CPT/HCPCS: 36415; 80053; 82390; 82607; 82746; 84443; 85025

== ENCOUNTER 2023-04-18 12:35 | Outpatient (CLI) | payer MEDICARE, OTHER, SELFPAY ==
--- NOTE | 2023-04-18 12:36 | MR_ITS ---
FINAL REPORT CLINICAL HISTORY: eval for reported brain tumor FINDINGS: Multiplanar MR imaging of the brain was performed without and with contrast. Motion artifact is identified on many of the images. There is no evidence of intracranial hemorrhage or mass. No abnormal extra-axial fluid collection is seen. The ventricular size is within normal limits. There is no evidence of shift of the midline structures. The posterior fossa and brainstem have an unremarkable appearance. No area of abnormal restricted diffusion is identified. No abnormal contrast enhancement is seen. Normal major vessel vascular flow voids are noted. IMPRESSION: No mass or abnormal contrast enhancement is identified. Reviewed, Interpreted and Dictated by Campbell Wasserman III, MD Transcribed by Ellie Kennedy Authenticated and [facility]
[2023-04-18] MEDS: GADOTERIDOL INJ 17ML SYRINGE 15 ML IV (14:10)
[2023-04-18] MEDS: SODIUM CHLORIDE 0.9% 10ML SYR (RAD ONLY) 10 ML IV (14:10)
== END 2023-04-18 23:59 ==
LOC: RAD 12:36
PROVIDERS: PCP Nurse Practitioner Family; Visit Provider Nurse Practitioner Family
DX: Z87.828 Personal history of other (healed) physical injury and trauma (principal); Z87.898 Personal history of other specified conditions; D49.6 Neoplasm of unspecified behavior of brain
CPT/HCPCS: 70553; A9576

== ENCOUNTER 2023-05-07 11:43 | Outpatient (CLI) | payer MEDICARE, OTHER, SELFPAY ==
--- NOTE | 2023-05-07 11:47 | XR_ITS ---
FINAL REPORT CLINICAL HISTORY: right hip pain FINDINGS: RIGHT HIP Two views of the right hip demonstrate no acute fracture or dislocation. The joint spaces appear normal. There is degenerative joint disease, right greater than left. The visualized bony structures are well aligned. No soft tissue abnormality is seen. IMPRESSION: No acute bony abnormality. Reviewed, Interpreted and Dictated by Bobbi Parks MD Transcribed by Moon Zamora Authenticated and [facility]
== END 2023-05-07 23:59 ==
LOC: RAD 11:45
PROVIDERS: PCP Family Medicine; Visit Provider Family Medicine
DX: M25.551 Pain in right hip (principal)
CPT/HCPCS: 73502

== ENCOUNTER 2023-07-17 09:05 | Outpatient (CLI) | payer MEDICARE, OTHER, SELFPAY ==
--- NOTE | 2023-07-17 09:12 | XR_ITS ---
FINAL REPORT CLINICAL HISTORY: sciatica right leg COMPARISON: None FINDINGS: AP and lateral views of the lumbar spine were obtained. There is no prior exam for comparison. There is no acute fracture or malalignment. Vertebral body height is preserved. Mild degenerative changes present. Vascular calcifications are present.. IMPRESSION: Mild degenerative change, no acute bony abnormality. Reviewed, Interpreted and Dictated by Campbell Wasserman III, MD Transcribed by Ana Cage Authenticated and [facility]
== END 2023-07-17 23:59 | disposition home or self-care (01) ==
LOC: RAD 09:07
PROVIDERS: PCP Family Medicine; Visit Provider Family Medicine
DX: M47.26 Other spondylosis with radiculopathy, lumbar region (principal)
CPT/HCPCS: 72100

== ENCOUNTER 2023-11-05 10:43 | Outpatient (CLI) | payer MEDICARE, OTHER, SELFPAY ==
[2023-11-05 16:35] LABS: Basophils # 0.1 K/mm3 (0-0.2); Basophils % 0.8 % (0.1-2.0); Eosinophils # 0.2 K/mm3 (0.0-0.4); Eosinophils % 2.7 % (0.1-12.0); Hemoglobin 14.4 g/dL (12.2-16.2); Lymphocytes # 2.5 K/mm3 (0.7-4.5); Lymphocytes % 33.1 % (10-50); Mean Corpuscular HGB Conc 31.3 g/dL (31.8-35.4); Mean Corpuscular Hemoglobin 31.4 pg (27.0-31.2); Mean Corpuscular Volume 100.2 fl (81-99); Mean Platelet Volume 10.6 fl (7.4-10.4); Monocytes # 0.5 K/mm3 (0.1-1.0); Monocytes % 5.9 % (1.7-9.3); Neutrophils # 4.4 K/mm3 (1.8-7.8); Neutrophils % 57.6 % (37.0-80.0); Platelet Count 255 K/mm3 (142-424); Red Blood Count 4.59 M/mm3 (4.20-5.40); Red Cell Distribution Width 13.3 % (11.5-17.5); White Blood Count 7.6 K/mm3 (4.8-10.8)
[2023-11-05 16:59] LABS: Estimated Glomerular Filt Rate 128 ml/min (>60); GFR (African American) 155 ML/MIN (>60); VLDL Cholesterol 47 mg/dL (0-40)
[2023-11-05 17:30] LABS: Thyroid Stimulating Hormone 1.89 uIU/mL (0.465-4.68)
[2023-11-05 18:05] LABS: Vitamin B12 390 pg/mL (239-931)
[2023-11-05 19:33] LABS: HIV (1&2) Antibody Rapid NONREACTIVE (NONREACTIVE)
[2023-11-05 19:34] LABS: Chloride 108 mmol/L (98-107)
[2023-11-05 19:35] LABS: Albumin Level 4.8 g/dl (3.5-5.0); Potassium 4.4 mmoL/L (3.5-5.1); Sodium 138 mmol/L (136-145)
[2023-11-05 19:38] LABS: Alanine Aminotransferase 28 U/L (12-78); Alkaline Phosphatase 66 U/L (38-126); Anion Gap 13.4 mEq/L (5-15); Aspartate Amino Transferase 29 U/L (14-36); Bilirubin,Total 0.5 mg/dl (0.2-1.3); Blood Urea Nitrogen 15 mg/dl (7-17); Carbon Dioxide 21 mmol/L (22.0-30.0); Cholesterol 234 mg/dl (140-200); Total Protein,Serum 7.2 g/dl (6.3-8.2); Triglycerides 233 mg/dl (30-150)
[2023-11-05 19:39] LABS: Calcium 9.4 mg/dl (8.4-10.2); Chol/HDL Ratio 6.3 (1-3.5); Glucose 116 mg/dl (74-100); HDL Cholesterol 37 mg/dl (40-60)
[2023-11-05 19:50] LABS: Direct LDL Cholesterol 140.57 mg/dL (100-129)
[2023-11-05 20:00] LABS: Globulin 2.4 g/dL (1.3-3.2)
[2023-11-06 08:57] LABS: Hemoglobin A1C 6.1 % (4.0-6.0)
[2023-11-07 08:35] LABS: HCV Ab Non Reactive (Non Reactive)
== END 2023-11-05 23:59 | disposition home or self-care (01) ==
LOC: LAB.DROPOF 11-06 08:36
PROVIDERS: PCP Family Medicine; Visit Provider Family Medicine
DX: I10 Essential (primary) hypertension (principal); E53.8 Deficiency of other specified B group vitamins; E78.5 Hyperlipidemia, unspecified; Z11.59 Encounter for screening for other viral diseases; Z11.4 Encounter for screening for human immunodeficiency virus [HIV]; R73.09 Other abnormal glucose
CPT/HCPCS: 80053; 80061; 82607; 82746; 83036; 84443; 85025; 86803; 87389

== ENCOUNTER 2024-01-31 10:08 | Outpatient (CLI) | payer MEDICARE, OTHER, SELFPAY ==
[2024-01-31 17:31] LABS: Creatinine,Urine Random 78 mg/dL (Not Estab.); Microalbumin < 6.000 mg/L (0-16.7)
== END 2024-01-31 23:59 | disposition home or self-care (01) ==
LOC: LAB.DROPOF 02-01 09:37
PROVIDERS: PCP Family Medicine; Visit Provider Family Medicine
DX: E11.9 Type 2 diabetes mellitus without complications (principal)
CPT/HCPCS: 82043; 82570

== ENCOUNTER 2024-05-01 09:55 | Outpatient (CLI) | payer MEDICARE, OTHER, SELFPAY ==
[2024-05-01 16:41] LABS: Basophils # 0.1 K/mm3 (0-0.2); Basophils % 0.8 % (0.1-2.0); Eosinophils # 0.2 K/mm3 (0.0-0.4); Eosinophils % 2.9 % (0.1-12.0); Hemoglobin 13.7 g/dL (12.2-16.2); Lymphocytes # 3.1 K/mm3 (0.7-4.5); Lymphocytes % 40.2 % (10-50); Mean Corpuscular HGB Conc 31.9 g/dL (31.8-35.4); Mean Corpuscular Hemoglobin 30.2 pg (27.0-31.2); Mean Corpuscular Volume 94.9 fl (81-99); Monocytes # 0.7 K/mm3 (0.1-1.0); Monocytes % 9.1 % (1.7-9.3); Neutrophils # 3.6 K/mm3 (1.8-7.8); Neutrophils % 46.6 % (37.0-80.0); Platelet Count 244 K/mm3 (142-424); Red Blood Count 4.53 M/mm3 (4.20-5.40); Red Cell Distribution Width 13.6 % (11.5-17.5); White Blood Count 7.6 K/mm3 (4.8-10.8)
[2024-05-01 17:01] LABS: Alanine Aminotransferase 28 U/L (12-78); Albumin Level 4.6 g/dl (3.5-5.0); Albumin/Globulin Ratio 2.2 (1.1-1.8); Alkaline Phosphatase 64 U/L (38-126); Anion Gap 12.3 mEq/L (5-15); Aspartate Amino Transferase 28 U/L (14-36); Bilirubin,Total 0.4 mg/dl (0.2-1.3); Blood Urea Nitrogen 13 mg/dl (7-17); Calcium 9.2 mg/dl (8.4-10.2); Carbon Dioxide 22 mmol/L (22.0-30.0); Chloride 107 mmol/L (98-107); Chol/HDL Ratio 6.6 (1-3.5); Cholesterol 263 mg/dl (140-200); Estimated Glomerular Filt Rate 128 ml/min (>60); GFR (African American) 155 ML/MIN (>60); Globulin 2.1 g/dL (1.3-3.2); Glucose 94 mg/dl (74-100); HDL Cholesterol 40 mg/dl (40-60); Potassium 4.3 mmoL/L (3.5-5.1); Sodium 137 mmol/L (136-145); Total Protein,Serum 6.7 g/dl (6.3-8.2); Triglycerides 194 mg/dl (30-150); VLDL Cholesterol 39 mg/dL (0-40)
[2024-05-01 17:07] LABS: Creatinine,Urine Random 53 mg/dL (Not Estab.); Microalbumin < 6.000 mg/L (0-16.7)
[2024-05-01 17:11] LABS: Direct LDL Cholesterol 158.23 mg/dL (100-129)
[2024-05-01 17:17] LABS: Hemoglobin A1C 5.8 % (4.0-6.0)
== END 2024-05-01 23:59 | disposition home or self-care (01) ==
LOC: LAB.DROPOF 05-02 11:59
PROVIDERS: PCP Family Medicine; Visit Provider Family Medicine
DX: E78.5 Hyperlipidemia, unspecified (principal); E11.9 Type 2 diabetes mellitus without complications; I10 Essential (primary) hypertension
CPT/HCPCS: 80053; 80061; 82043; 82570; 83036; 85025

== ENCOUNTER 2024-07-25 15:00 | Inpatient (IN) | payer MEDICARE, OTHER, SELFPAY ==
[2024-07-25] VITALS (33 sets, daily range): BP systolic 69–166; BP diastolic 36–81; PULSE 52–86; RESP 16–22; TEMP 36.7–36.9; O2SAT 87–97; BMI 30.9
--- NOTE | 2024-07-25 15:17 | ED_ITS ---
Discharge Plan Disposition Patient Disposition: Admitted Condition: Fair Clinical Impressions Clinical Impression: ROJELIO (acute kidney injury) Discharge ED Provider: Royer Cerna Adult HPI General Chief complaint: Abdominal Pain Stated complaint: ABDOMINAL PAIN Time Seen by Provider: 07/25/24 15:17 History of Present Illness HPI narrative: The patient presents to the Emergency Department with abdominal pain that started on Sunday. The patient has a history of abdominal surgeries, including internal bleeding surgery and gallbladder surgery, with mesh placement. The abdominal pain is described as constant when not moving and is located in the lower abdomen. The pain is severe, with the patient stating it hurts real bad and that they couldn't get up out of bed, it hurt so bad. The onset was sudden, with the patient describing it as feeling like someone just punched me in my face. The pain is exacerbated by movement and going to the bathroom. Associated symptoms include nausea, vomiting, and diarrhea. The patient reports vomiting pure liquid but denies any blood in the vomit or stool. There are no reported urinary symptoms. The patient's medical history is significant for acid reflux disease, for which they take medication. 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 Current medications include blood pressure medicine, B12 supplements, cholesterol medicine, stomach medicine for acid reflux, gabapentin, and naproxen. 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 Their surgical history includes abdominal surgery at [facility] at approximately age 36, gallbladder surgery, and tunnel bleeding surgery. The patient denies current use of blood thinners. Review of systems is positive for nausea, abdominal pain, vomiting, diarrhea, difficulty moving due to pain, right-sided nerve damage, and shaking. It is negative for blood in stool and difficulty urinating. Please note that above description of symptoms, in this electronic medical record under categorization of recalled from ER triage doctor by RN are reflective of an initial nursing assessment, however, is not reflective of my full history and physical exam that was personally taken and clarified. Consequentially, this preceding description of symptoms, which may include the patient's categorized chief complaint in the EMR, do not reflect my personal clinical impression, and the ultimate description of history of present illness and patient stated complaints should be deferred to this section of the note. Unless stated otherwise or congruent with this section of the note, additional signs, symptoms, or incongruence should be interpreted as inaccurate with my clinical impression. Related Data Home Medications ?Medication ?Instructions ?Recorded ?Confirmed amlodipine 10 mg-benazepril 40 mg 1 cap PO DAILY 07/2507/26/24 capsule bupropion HCl 150 mg 24 hr tablet, 150 mg PO DAILY 07/25/24 extended release omeprazole 40 mg capsule,delayed 40 mg PO BID 07/25/24 07/25/24 release naproxen 500 mg tablet 500 mg PO BIDP PRN Mild Pain 07/26/24 07/26/24 (Scale Score 1-4) Previous Rx's ?Medication ?Instructions ?Recorded albuterol sulfate 90 mcg/actuation 1 inh inhalation Q6 H PRN shortness 01/31/24 aerosol inhaler of breath or wheezing 90 day s #8.5 grams loratadine 10 mg tablet 10 mg PO DAILY allergies #10 0 tabs 01/31/24 atorvastatin 40 mg tablet 80 mg (2 x 40 mg) PO HS #90 tabs 06/24/24 cyanocobalamin (vitamin B-12) 1,000 mcg SQ MONTHLY 4 m onths #4 mL 07/08/24 1,000 mcg/mL injection solution gabapentin 800 mg tablet 800 mg PO QID Pain 30 days # 120 07/08/24 tabs escitalopram oxalate 10 mg tablet 10 mg PO DAILY mood #90 tabs 07/21/24 (Lexapro) fluticasone fur. 100 mcg-umeclid 1 inh inhalation PABLITO Y #60 ea 07/28/24 62.5 mcg-vilant 25 mcg inhalat.powder (Trelegy Ellipta) levofloxacin 750 mg tablet 750 mg PO DAILY 2 days #2 t abs 07/28/24 Allergies Allergy/AdvReac Type Severity Reaction Status Date / Time No Known Allergies Allergy Verified 07/25/24 14:12 [facility] Disclaimer: The information contained in this section may have been updated after the patient was seen, as this information can be updated by other users. Medical History Migraine headache Hypertension Hyperlipidemia Depression Asthma Anxiety Nausea & vomiting URI (upper respiratory infection) Otitis media Right shoulder pain Tobacco abuse disorder Tobacco abuse counseling Screening for lung cancer History of environmental allergies Dyspnea on exertion Smoking greater than 30 pack years Sore throat Rash COPD (chronic obstructive pulmonary disease) Surgical History Hx of hernia repair History of cholecystectomy History of carpal tunnel release bilateral Family History Other Cancer Heart attack Stroke Social History (Updated 07/25/24 @ 20:24 by Mary Salinas RN) Smoking Status: Current every day smoker tobacco type: cigarettes packs per day: 1 second hand exposure: Yes alcohol intake: former substance use type: denies use current occupational status: disabled Travel in the last 8 weeks?: None household members: spouse and significant other housing: house lives independently: No marital status: education level: high school current occupational exposures/hazards: No caffeine: Yes do you feel safe at home: Yes victim of physical abuse: No victim of emotional abuse: No victim of sexual abuse: No would you like helpful sources: No Other Medical History Have you received the Flu Vaccine for this season: Yes Have you received the Pneumonia Vaccine: No ROS Obtained: Yes other As per HPI Physical Exam General General appearance: alert and in no apparent distress Head Head exam: atraumatic and normocephalic Eye Eye exam: Present normal appearance Neck Neck exam: Present normal inspection Chest Chest inspection: Present normal inspection and symmetric chest wall rise Respiratory Respiratory exam: Present normal lung sounds bilaterally; Absent respiratory distress Cardiovascular Cardiovascular exam: Present regular rate and normal rhythm Abdominal Exam Abdominal exam: Present soft Neurological Exam Neurological exam: Present alert and oriented X3 Psychiatric Psychiatric exam: Present normal affect and normal mood Skin Skin exam: Present warm and dry Medical Decision Making Medical Records Medical records reviewed: Yes I reviewed the patient's medical records. Screening: Per USPSTF and CDC recommendations, given the prevalence of disease in our region, it is our hospital?s policy to screen for HIV and viral Hepatitis for all patients aged 18 and over and those with ongoing risk factors. [place] Inquiry Pt receiving controlled substance: No Vital Signs: 07/25/24 15:23 07/25/24 16:24 07/25/24 16:42 Temperature 98.1 F Temperature Source Oral Pulse Rate 60 62 Pulse Rate [Left Brachial] 71 Respiratory Rate 19 Blood Pressure 80/53 L 89/53 L Blood Pressure [Left Arm] 101/81 L Blood Pressure Mean 60 61 Blood Pressure Mean [Left Arm] 87 Blood Pressure Source Blood Pressure Source [Left Arm] Automatic Cuff Blood Pressure Position Blood Pressure Position [Left Arm] 02 Sat by Pulse Oximetry 95 94 L 94 L Oxygen Delivery Method Room Air Oxygen Flow Rate (LPM) 07/25/24 16:45 07/25/24 17:00 07/25/24 17:06 Temperature Temperature Source Pulse Rate 60 Pulse Rate [Left Brachial] Respiratory Rate Blood Pressure 88/55 L 78/52 L 83/51 L Blood Pressure [Left Arm] Blood Pressure Mean 62 59 56 Blood Pressure Mean [Left Arm] Blood Pressure Source Blood Pressure Source [Left Arm] Blood Pressure Position Blood Pressure Position [Left Arm] 02 Sat by Pulse Oximetry 94 L Oxygen Delivery Method Oxygen Flow Rate (LPM) 07/25/24 17:17 07/25/24 17:19 07/25/24 17:31 Temperature Temperature Source Pulse Rate 58 L 58 L 56 L Pulse Rate [Left Brachial] Respiratory Rate Blood Pressure 69/46 L 79/42 L 89/46 L Blood Pressure [Left Arm] Blood Pressure Mean 53 51 55 Blood Pressure Mean [Left Arm] Blood Pressure Source Blood Pressure Source [Left Arm] Blood Pressure Position Blood Pressure Position [Left Arm] 02 Sat by Pulse Oximetry 95 97 94 L Oxygen Delivery Method Oxygen Flow Rate (LPM) 07/25/24 17:38 07/25/24 17:40 07/25/24 17:45 Temperature Temperature Source Pulse Rate 55 L 57 L 58 L Pulse Rate [Left Brachial] Respiratory Rate 16 Blood Pressure 93/65 L 93/65 L 79/53 L Blood Pressure [Left Arm] Blood Pressure Mean 74 61 Blood Pressure Mean [Left Arm] Blood Pressure Source Automatic Cuff Blood Pressure Source [Left Arm] Blood Pressure Position Supine Blood Pressure Position [Left Arm] 02 Sat by Pulse Oximetry 94 L 94 L 93 L Oxygen Delivery Method Room Air Oxygen Flow Rate (LPM) 07/25/24 18:00 07/25/24 18:07 07/25/24 18:07 Temperature Temperature Source Pulse Rate 56 L 55 L Pulse Rate [Left Brachial] Respiratory Rate Blood Pressure 78/43 L Blood Pressure [Left Arm] Blood Pressure Mean 50 Blood Pressure Mean [Left Arm] Blood Pressure Source Blood Pressure Source [Left Arm] Blood Pressure Position Blood Pressure Position [Left Arm] 02 Sat by Pulse Oximetry 87 L 89 L Oxygen Delivery Method Oxygen Flow Rate (LPM) 07/25/24 18:13 07/25/24 18:30 07/25/24 18:49 Temperature Temperature Source Pulse Rate 58 L 52 L 55 L Pulse Rate [Left Brachial] Respiratory Rate Blood Pressure 87/51 L 70/38 L 88/45 L Blood Pressure [Left Arm] Blood Pressure Mean 56 58 Blood Pressure Mean [Left Arm] Blood Pressure Source Blood Pressure Source [Left Arm] Blood Pressure Position Blood Pressure Position [Left Arm] 02 Sat by Pulse Oximetry 93 L 91 L 94 L Oxygen Delivery Method Room Air Oxygen Flow Rate (LPM) 07/25/24 19:31 07/25/24 19:59 07/25/24 20:00 Temperature 98.3 F 98.4 F Temperature Source Oral Oral Pulse Rate 53 L Pulse Rate [Left Brachial] 60 86 Respiratory Rate 18 18 22 Blood Pressure 83/51 L Blood Pressure [Left Arm] 105/36 L Blood Pressure Mean Blood Pressure Mean [Left Arm] 59 Blood Pressure Source Automatic Cuff Blood Pressure Source [Left Arm] Automatic Cuff Blood Pressure Position Sitting Blood Pressure Position [Left Arm] Supine 02 Sat by Pulse Oximetry 96 96 Oxygen Delivery Method Nasal Cannula Nasal Cannula Room Air Oxygen Flow Rate (LPM) 2 2 Lab Data Lab Results 07/25/24 15:03: WBC 9.1, RBC 4.66, Hgb 14.2, Hct 42.9, MCV 92.1, MCH 30.5, MCHC 33.1, RDW 13.2, Plt Count 252, MPV 10.6 H, Neut % (Auto) 51.0, Lymph % (Auto) 35.0, Fisher % (Auto) 11.2 H, Eos % (Auto) 2.1, Baso % (Auto) 0.3, Neut # (Auto) 4.6, Lymph # (Auto) 3.2, Fisher # (Auto) 1.0, Eos # (Auto) 0.2, Baso # (Auto) 0.0, Sodium 133 L, Potassium 3.3 L, Chloride 99, Carbon Dioxide 25, Anion Gap 12.3, B UN 51 H, Creatinine 1.70 H, Estimated Creat Clear 48, Estimated GFR 31 L, Est GFR ( Amer) 38 L, Glucose 120 H, Calcium 8.7, Magnesium 1.8, Total Bilirubin 1.3, AST 28, ALT 19, Alkaline Phosphatase 78, Total Protein 6.9, Albumin 4.2, Globulin 2.7, Albumin/Globulin Ratio 1.6, Lipase 50 07/28/24 08:09 07/28/24 08:09 Orders (Tests/Meds): ED MEDICATIONS Discontinued Medications Generic Name Dose Route Start Last Admin Trade Name Freq PRN Reason Stop Dose Admin Acetaminophen 1,000 mg 07/26/24 21:30 07/27/24 22:44 Acetaminophen 1,000mg/100ml Vial IV 08/25/24 21:29 1,000 mg Q6HP PRN Administration Mild Pain (1-3) Albuterol Sulfate 1 puff 07/26/24 06:29 Albuterol-Hfa 90mcg/Puff Inhaler 8gm IH 08/25/24 06:28 Q6H PRN Shortness Of Breath Or Wheezing Albuterol/Ipratropium 3 ml 07/26/24 06:29 Ipratropium/Albuterol 3 Ml Neb IH 08/25/24 06:28 Q6HP PRN Shortness Of Breath Or Wheezing Belladonna Alkaloids 60 ml 07/25/24 17:21 07/25/24 17:26 Belladonna Alkaloids 60 Ml Ml PO 07/25/24 17:22 60 ml ONCE ONE Administration Bupropion HCl 150 mg 07/26/24 09:00 07/28/24 09:53 Bupropion Hcl Sr 150mg Tab PO 08/25/24 08:59 150 mg DAILY RUBIO Administration Cyanocobalamin 1,000 mcg 07/26/24 06:30 07/26/24 09:47 Vitamin B-12 1,000 Mcg 1ml Vial SUBCUT 08/25/24 06:29 Not Given MONTHLY RUBIO Dicyclomine HCl 40 mg 07/26/24 14:39 07/26/24 14:50 Dicyclomine 10mg Capsule PO 07/26/24 14:40 40 mg ONCE ONE Administration Enoxaparin Sodium 40 mg 07/27/24 09:00 07/28/24 09:55 Enoxaparin 40mg/0.4ml Syringe SUBCUT 08/26/24 08:59 40 mg DAILY RUBIO Administration Escitalopram Oxalate 10 mg 07/26/24 09:00 07/28/24 09:53 Escitalopram 10mg Tablet PO 08/25/24 08:59 10 mg DAILY RUBIO Administration Famotidine 20 mg 07/26/24 21:00 07/28/24 09:54 Famotidine 20mg/2ml Vial IV 08/25/24 20:59 20 mg BID RUBIO Administration Fluticasone/Umeclidinium/Vilanterol 1 puff 07/26/24 09:00 07/28/24 06:16 Fluticasone/Umeclidin/Vilanter 100/62.5/25mcg Inhaler IH 08/25/24 08:59 1 puff DAILY RUBIO Administration Gabapentin 800 mg 07/26/24 09:00 07/26/24 16:32 Gabapentin 800mg Tablet PO 08/25/24 08:59 Not Given QID RUBIO Heparin Sodium (Porcine) 5,000 unit 07/25/24 21:00 07/26/24 12:58 Heparin Sodium 5,000 Unit/Ml Vial SUBCUT 08/24/24 20:59 Not Given TID RUBIO Lactated Ringer's 1,000 mls @ 999 mls/hr 07/25/24 15:28 07/25/24 15:35 Lactated Ringer's 1000 Ml Bag IV 07/25/24 16:28 999 mls/hr .Q1H1M ONE Administration Lactated Ringer's 1,000 mls @ 999 mls/hr 07/25/24 17:21 07/25/24 17:26 Lactated Ringer's 1000 Ml Bag IV 07/25/24 18:21 999 mls/hr .Q1H1M ONE Administration Lactated Ringer's 1,000 mls @ 999 mls/hr 07/25/24 18:49 07/25/24 18:50 Lactated Ringer's 1000 Ml Bag IV 07/25/24 19:49 999 mls/hr .Q1H1M ONE Administration Sodium Chloride 1,000 mls @ 50 mls/hr 07/25/24 20:00 07/25/24 20:45 Sod Chlor 0.9% 1000ml Bag IV 08/24/24 19:59 50 mls/hr .Q20H RUBIO Administration Sodium Chloride 1,000 mls @ 75 mls/hr 07/26/24 06:45 07/28/24 13:14 Sod Chlor 0.9% 1000ml Bag IV 08/25/24 06:44 Not Given .[id number] RUBIO Sodium Chloride 1,000 mls @ 500 mls/hr 07/26/24 08:00 07/26/24 09:24 Sod Chlor 0.9% 1000ml Bag IV 07/26/24 09:59 500 mls/hr .Q2H ONE Administration Levofloxacin/Dextrose 750 mg in 150 mls @ 100 mls/hr 07/26/24 14:00 07/27/24 13:37 Levofloxacin 750mg/150ml Premix IV 08/05/24 13:59 100 mls/hr Q24H RUBIO Administration Iopamidol 75 ml 07/25/24 16:06 07/25/24 16:06 Iopamidol-370 (76%);100ml Bottle IV 07/25/24 16:07 75 ml ONCE ONE Administration Ketorolac Tromethamine 15 mg 07/25/24 17:21 07/25/24 17:26 Ketorolac 30mg/Ml Vial IV 07/25/24 17:22 15 mg ONCE ONE Administration Ketorolac Tromethamine 30 mg 07/26/24 14:37 07/26/24 20:57 Ketorolac 30mg/Ml Vial IV 07/31/24 14:36 30 mg Q6HP PRN Administration Moderate Pain (4-6) Levofloxacin 750 mg 07/28/24 13:15 07/28/24 13:33 Levofloxacin 750 Mg Tablet PO 07/28/24 13:16 750 mg ONCE ONE Administration Loratadine 10 mg 07/26/24 09:00 07/26/24 09:24 Loratadine 10mg Tablet PO 08/25/24 08:59 10 mg DAILY RUBIO Administration Miscellaneous 1 unit 07/26/24 06:29 07/26/24 09:47 Aerochamber/Optihaler MC 07/26/24 06:30 Not Given ONCE ONE Morphine Sulfate 4 mg 07/25/24 15:28 07/25/24 15:35 Morphine 4mg/Ml Syringe IV 07/25/24 15:29 4 mg ONCE ONE Administration Morphine Sulfate 2 mg 07/25/24 19:48 07/26/24 12:16 Morphine 2mg/Ml Syringe IV 08/24/24 19:47 2 mg Q2HP PRN Administration Severe Pain (7-10) Morphine Sulfate 4 mg 07/26/24 14:37 Morphine 4mg/Ml Syringe IV 08/25/24 14:36 Q4HP PRN Severe Pain (7-10) Ondansetron HCl 4 mg 07/25/24 15:28 07/25/24 15:35 Ondansetron 4mg/2ml Vial IV 07/25/24 15:29 4 mg ONCE ONE Administration Ondansetron HCl 4 mg 07/26/24 09:36 07/26/24 14:50 Ondansetron 4mg/2ml Vial IV 08/25/24 09:35 4 mg Q6HP PRN Administration Nausea Pantoprazole Sodium 40 mg 07/26/24 09:00 07/26/24 09:24 Pantoprazole 40mg Tablet PO 08/25/24 08:59 40 mg BID RUBIO Administration Phenol 0 ml 07/26/24 19:58 Phenol Throat Cheney 177 Ml Bottle MM 08/25/24 19:57 NEEDED PRN Sore Throat Promethazine HCl 25 mg 07/25/24 19:48 07/26/24 23:31 Promethazine Hcl 25mg/Ml 1ml Vial IV 08/24/24 19:47 25 mg Q6HP PRN Administration Nausea And Vomiting Sodium Chloride 10 ml 07/25/24 16:06 07/25/24 16:06 Sodium Chloride 0.9% 10ml Syr (Rad Only) IV 07/25/24 16:07 10 ml ONCE ONE Administration Sodium Chloride 10 ml 07/25/24 19:48 Sodium Chloride 0.9% 10ml Flush Syringe IV 08/24/24 19:47 NEEDED PRN Maintain IV Site Sodium Chloride 25 ml 07/25/24 19:48 07/26/24 23:31 Sodium Chloride 0.9% 25ml Bag IV 08/24/24 19:47 25 ml NEEDED PRN Administration for Use with IV Promethazine Sodium Chloride 10 ml 07/26/24 06:33 Sodium Chloride 0.9% 10ml Flush Syringe IV 08/25/24 06:32 NEEDED PRN Maintain IV Site Sodium Chloride 8 ml 07/26/24 20:55 07/27/24 20:30 Sodium Chloride 0.9% 10ml Vial IV 08/25/24 20:54 8 ml NEEDED PRN Administration dilute famotidine ORDERS Category Date Time Status CT abdomen pelvis w con Stat Cat Scan 07/25/24 15:28 Completed CBC w/Auto Diff [Complete Blood Count Auto Diff] Stat Lab 07/25/24 15:03 Completed CMP [Comprehensive Metabolic Panel] Stat Lab 07/25/24 15:03 Completed Complete Blood Count Auto Diff AMLAB Lab 07/26/24 06:19 Completed Comprehensive Metabolic Panel AMLAB Lab 07/26/24 06:19 Completed Lipase Stat Lab 07/25/24 15:03 Completed MAG [Magnesium] Stat Lab 07/25/24 15:03 Completed Medical Decision Narrative: Patient with history and exam per above presenting for evaluation of abdominal pain, nausea, vomiting Diagnoses considered include infectious diarrhea, electrolyte abnormality, acute kidney injury, others ED workup and treatment included: ED MEDICATIONS Discontinued Medications Generic Name Dose Route Start Last Admin Trade Name Freq PRN Reason Stop Dose Admin Acetaminophen 1,000 mg 07/26/24 21:30 07/27/24 22:44 Acetaminophen 1,000mg/100ml Vial IV 08/25/24 21:29 1,000 mg Q6HP PRN Administration Mild Pain (1-3) Albuterol Sulfate 1 puff 07/26/24 06:29 Albuterol-Hfa 90mcg/Puff Inhaler 8gm 08/25/24 06:28 Q6H PRN Shortness Of Breath Or Wheezing Albuterol/Ipratropium 3 ml 07/26/24 06:29 Ipratropium/Albuterol 3 Ml Neb IH 08/25/24 06:28 Q6HP PRN Shortness Of Breath Or Wheezing Belladonna Alkaloids 60 ml 07/25/24 17:21 07/25/24 17:26 Belladonna Alkaloids 60 Ml Ml PO 07/25/24 17:22 60 ml ONCE ONE Administration Bupropion HCl 150 mg 07/26/24 09:00 07/28/24 09:53 Bupropion Hcl Sr 150mg Tab PO 08/25/24 08:59 150 mg DAILY RUBIO Administration Cyanocobalamin 1,000 mcg 07/26/24 06:30 07/26/24 09:47 Vitamin B-12 1,000 Mcg 1ml Vial SUBCUT 08/25/24 06:29 Not Given MONTHLY RUBIO Dicyclomine HCl 40 mg 07/26/24 14:39 07/26/24 14:50 Dicyclomine 10mg Capsule PO 07/26/24 14:40 40 mg ONCE ONE Administration Enoxaparin Sodium 40 mg 07/27/24 09:00 07/28/24 09:55 Enoxaparin 40mg/0.4ml Syringe SUBCUT 08/26/24 08:59 40 mg DAILY RUBIO Administration Escitalopram Oxalate 10 mg 07/26/24 09:00 07/28/24 09:53 Escitalopram 10mg Tablet PO 08/25/24 08:59 10 mg DAILY RUBIO Administration Famotidine 20 mg 07/26/24 21:00 07/28/24 09:54 Famotidine 20mg/2ml Vial IV 08/25/24 20:59 20 mg BID RUBIO Administration Fluticasone/Umeclidinium/Vilanterol 1 puff 07/26/24 09:00 07/28/24 06:16 Fluticasone/Umeclidin/Vilanter 100/62.5/25mcg Inhaler IH 08/25/24 08:59 1 puff DAILY RUBIO Administration Gabapentin 800 mg 07/26/24 09:00 07/26/24 16:32 Gabapentin 800mg Tablet PO 08/25/24 08:59 Not Given QID RUBIO Heparin Sodium (Porcine) 5,000 unit 07/25/24 21:00 07/26/24 12:58 Heparin Sodium 5,000 Unit/Ml Vial SUBCUT 08/24/24 20:59 Not Given TID RUBIO Lactated Ringer's 1,000 mls @ 999 mls/hr 07/25/24 15:28 07/25/24 15:35 Lactated Ringer's 1000 Ml Bag IV 07/25/24 16:28 999 mls/hr .Q1H1M ONE Administration Lactated Ringer's 1,000 mls @ 999 mls/hr 07/25/24 17:21 07/25/24 17:26 Lactated Ringer's 1000 Ml Bag IV 07/25/24 18:21 999 mls/hr .Q1H1M ONE Administration Lactated Ringer's 1,000 mls @ 999 mls/hr 07/25/24 18:49 07/25/24 18:50 Lactated Ringer's 1000 Ml Bag IV 07/25/24 19:49 999 mls/hr .Q1H1M ONE Administration Sodium Chloride 1,000 mls @ 50 mls/hr 07/25/24 20:00 07/25/24 20:45 Sod Chlor 0.9% 1000ml Bag IV 08/24/24 19:59 50 mls/hr .Q20H RUBIO Administration Sodium Chloride 1,000 mls @ 75 mls/hr 07/26/24 06:45 07/28/24 13:14 Sod Chlor 0.9% 1000ml Bag IV 08/25/24 06:44 Not Given .[id number] RUBIO Sodium Chloride 1,000 mls @ 500 mls/hr 07/26/24 08:00 07/26/24 09:24 Sod Chlor 0.9% 1000ml Bag IV 07/26/24 09:59 500 mls/hr .Q2H ONE Administration Levofloxacin/Dextrose 750 mg in 150 mls @ 100 mls/hr 07/26/24 14:00 07/27/24 13:37 Levofloxacin 750mg/150ml Premix IV 08/05/24 13:59 100 mls/hr Q24H RUBIO Administration Iopamidol 75 ml 07/25/24 16:06 07/25/24 16:06 Iopamidol-370 (76%);100ml Bottle IV 07/25/24 16:07 75 ml ONCE ONE Administration Ketorolac Tromethamine 15 mg 07/25/24 17:21 07/25/24 17:26 Ketorolac 30mg/Ml Vial IV 07/25/24 17:22 15 mg ONCE ONE Administration Ketorolac Tromethamine 30 mg 07/26/24 14:37 07/26/24 20:57 Ketorolac 30mg/Ml Vial IV 07/31/24 14:36 30 mg Q6HP PRN Administration Moderate Pain (4-6) Levofloxacin 750 mg 07/28/24 13:15 07/28/24 13:33 Levofloxacin 750 Mg Tablet PO 07/28/24 13:16 750 mg ONCE ONE Administration Loratadine 10 mg 07/26/24 09:00 07/26/24 09:24 Loratadine 10mg Tablet PO 08/25/24 08:59 10 mg DAILY RUBIO Administration Miscellaneous 1 unit 07/26/24 06:29 07/26/24 09:47 Aerochamber/Optihaler MC 07/26/24 06:30 Not Given ONCE ONE Morphine Sulfate 4 mg 07/25/24 15:28 07/25/24 15:35 Morphine 4mg/Ml Syringe IV 07/25/24 15:29 4 mg ONCE ONE Administration Morphine Sulfate 2 mg 07/25/24 19:48 07/26/24 12:16 Morphine 2mg/Ml Syringe IV 08/24/24 19:47 2 mg Q2HP PRN Administration Severe Pain (7-10) Morphine Sulfate 4 mg 07/26/24 14:37 Morphine 4mg/Ml Syringe IV 08/25/24 14:36 Q4HP PRN Severe Pain (7-10) Ondansetron HCl 4 mg 07/25/24 15:28 07/25/24 15:35 Ondansetron 4mg/2ml Vial IV 07/25/24 15:29 4 mg ONCE ONE Administration Ondansetron HCl 4 mg 07/26/24 09:36 07/26/24 14:50 Ondansetron 4mg/2ml Vial IV 08/25/24 09:35 4 mg Q6HP PRN Administration Nausea Pantoprazole Sodium 40 mg 07/26/24 09:00 07/26/24 09:24 Pantoprazole 40mg Tablet PO 08/25/24 08:59 40 mg BID RUBIO Administration Phenol 0 ml 07/26/24 19:58 Phenol Throat Cheney 177 Ml Bottle MM 08/25/24 19:57 NEEDED PRN Sore Throat Promethazine HCl 25 mg 07/25/24 19:48 07/26/24 23:31 Promethazine Hcl 25mg/Ml 1ml Vial IV 08/24/24 19:47 25 mg Q6HP PRN Administration Nausea And Vomiting Sodium Chloride 10 ml 07/25/24 16:06 07/25/24 16:06 Sodium Chloride 0.9% 10ml Syr (Rad Only) IV 07/25/24 16:07 10 ml ONCE ONE Administration Sodium Chloride 10 ml 07/25/24 19:48 Sodium Chloride 0.9% 10ml Flush Syringe IV 08/24/24 19:47 NEEDED PRN Maintain IV Site Sodium Chloride 25 ml 07/25/24 19:48 07/26/24 23:31 Sodium Chloride 0.9% 25ml Bag IV 08/24/24 19:47 25 ml NEEDED PRN Administration for Use with IV Promethazine Sodium Chloride 10 ml 07/26/24 06:33 Sodium Chloride 0.9% 10ml Flush Syringe IV 08/25/24 06:32 NEEDED PRN Maintain IV Site Sodium Chloride 8 ml 06/14/25 20:55 07/27/24 20:30 Sodium Chloride 0.9% 10ml Vial IV 08/25/24 20:54 8 ml NEEDED PRN Administration dilute famotidine ORDERS Category Date Time Status CT abdomen pelvis w con Stat Cat Scan 07/25/24 15:28 Completed CBC w/Auto Diff [Complete Blood Count Auto Diff] Stat Lab 07/25/24 15:03 Completed CMP [Comprehensive Metabolic Panel] Stat Lab 07/25/24 15:03 Completed Complete Blood Count Auto Diff AMLAB Lab 07/26/24 06:19 Completed Comprehensive Metabolic Panel AMLAB Lab 07/26/24 06:19 Completed Lipase Stat Lab 07/25/24 15:03 Completed MAG [Magnesium] Stat Lab 07/25/24 15:03 Completed Labs were independently interpreted by me, significant for evidence of acute kidney injury Imaging was independently visualized and interpreted by me, significant for no acute surgical pathology Please refer to radiology report for full details. Patient will benefit from mission to the hospital for further management of acute kidney injury. She was accepted for admission by hospitalist Critical Care Critical Care Time Critical Care Time: No
--- NOTE | 2024-07-25 15:28 | CT_ITS ---
PROCEDURE INFORMATION: Exam: CT Abdomen And Pelvis With Contrast Exam date and time: 07/25/2024 4:07 PM Age: 54 years old Clinical indication: Nausea and vomiting; Additional info: Periumbilical abd pain, n/v TECHNIQUE: Imaging protocol: Computed tomography of the abdomen and pelvis with contrast. Radiation optimization: All CT scans at this facility use at least one of these dose optimization techniques: automated exposure control; mA and/or kV adjustment per patient size (includes targeted exams where dose is matched to clinical indication); or iterative reconstruction. Contrast material: ISOVUE; Contrast volume: 75 ml; Contrast route: IV; COMPARISON: No relevant prior studies available. FINDINGS: Lungs: Mild scarring and atelectasis in the lower lungs. Liver: Normal. No mass. Gallbladder and biliary ducts: Normal. No calcified stones. No ductal dilation. Pancreas: Normal. No ductal dilation. Spleen: Normal. No splenomegaly. Adrenal glands: Normal. No mass. Kidneys and ureters: Normal. No hydronephrosis. Stomach and bowel: Nonspecific gastric and small bowel wall thickening. Dilated segments of small bowel tapering to normal diameter in left side of the abdomen. Moderate sigmoid diverticulosis without diverticulitis. Appendix: Appendix is absent. Intraperitoneal space: Small amount of free fluid in the abdomen and pelvis. Vasculature: The arteries demonstrate severe atherosclerotic disease. Lymph nodes: Unremarkable. No enlarged lymph nodes. Urinary bladder: Limited evaluation of the urinary bladder due to low urine volume. Reproductive: Unremarkable as visualized. Bones/joints: Unremarkable. No acute fracture. Soft tissues: There is a healed anterior abdominal wall incision. Other findings: Stigmata of old granulomatous disease. IMPRESSION: 1. Nonspecific gastric and small bowel wall thickening. Dilated segments of small bowel tapering to normal diameter in left side of the abdomen. This is favored to represent gastroenteritis with ileus. Partial small bowel obstruction is also possible. 2. Limited evaluation of the urinary bladder due to low urine volume. Please exclude infection clinically.
[2024-07-25] MEDS: ONDANSETRON 4MG/2ML VIAL 4 MG IV (15:35)
[2024-07-25] MEDS: LACTATED RINGERS 1000ML 1,000 ML 999 ML IV ×3 (15:35→18:50)
[2024-07-25] MEDS: MORPHINE 4MG/ML SYRINGE 4 MG IV (15:35)
[2024-07-25 15:44] LABS: Basophils % 0.3 % (0.1-2.0); Eosinophils # 0.2 Kmm3 (0.0-0.4); Eosinophils % 2.1 % (0.1-12.0); Hematocrit 42.9 % (37.0-47.0); Hemoglobin 14.2 g/dL (12.2-16.2); Immature Granulocytes # 0.04 10^3uL; Immature Granulocytes % 0.4 %; Lymphocytes # 3.2 K/mm3 (0.7-4.5); Mean Corpuscular HGB Conc 33.1 g/dL (31.8-35.4); Mean Corpuscular Hemoglobin 30.5 pg (27.0-31.2); Mean Corpuscular Volume 92.1 fl (81-99); Mean Platelet Volume 10.6 fl (7.4-10.4); Monocytes % 11.2 % (1.7-9.3); Neutrophils # 4.6 K/mm3 (1.8-7.8); Nucleated Red Blood Cells # 0 10^3/uL; Nucleated Red Blood Cells % 0 %; Platelet Count 252 K/mm3 (142-424); Red Blood Count 4.66 M/mm3 (4.20-5.40); Red Cell Distribution Width 13.2 % (11.5-17.5); White Blood Count 9.1 K/mm3 (4.8-10.8)
[2024-07-25 15:50] LABS: Albumin Level 4.2 g/dl (3.5-5.0); Chloride 99 mmol/L (98-107); Potassium 3.3 mmoL/L (3.5-5.1); Sodium 133 mmol/L (136-145)
[2024-07-25 15:52] LABS: Blood Urea Nitrogen 51 mg/dl (7-17); Creatinine Clearance Estimated 48 mL/min (50-200); Estimated Glomerular Filt Rate 31 ml/min (>60); GFR (African American) 38 ML/MIN (>60)
[2024-07-25 15:53] LABS: Alanine Aminotransferase 19 U/L (12-78); Albumin/Globulin Ratio 1.6 (1.1-1.8); Alkaline Phosphatase 78 U/L (38-126); Anion Gap 12.3 mEq/L (5-15); Aspartate Amino Transferase 28 U/L (14-36); Bilirubin,Total 1.3 mg/dl (0.2-1.3); Calcium 8.7 mg/dl (8.4-10.2); Carbon Dioxide 25 mmol/L (22.0-30.0); Globulin 2.7 g/dL (1.3-3.2); Glucose 120 mg/dl (74-100); Lipase 50 U/L (23-300); Magnesium 1.8 mg/dl (1.6-2.3); Total Protein,Serum 6.9 g/dl (6.3-8.2)
[2024-07-25] MEDS: IOPAMIDOL-370 (76%);100ML BOTTLE 75 ML IV (16:06)
[2024-07-25] MEDS: SODIUM CHLORIDE 0.9% 10ML SYR (RAD ONLY) 10 ML IV (16:06)
[2024-07-25] MEDS: KETOROLAC 30MG/ML VIAL 15 MG IV (17:26)
[2024-07-25] MEDS: BELLADONNA ALKALOIDS 60 ML ML PO (17:26)
--- NOTE | 2024-07-25 19:23 | PC.NURSE ---
rounded on pt. Dr Cerna at talking to pt about admission. pt agreeable. Pt voices no needs at this time. Dr Cerna now speaking to hospitalist.
--- NOTE | 2024-07-25 19:29 | PC.NURSE ---
called for admission
--- NOTE | 2024-07-25 19:40 | PC.NURSE ---
report called to Aniya RN at this time
--- NOTE | 2024-07-25 20:00 | PC.NURSE ---
pt arrived to floor at this time
--- NOTE | 2024-07-25 20:02 | PC.NURSE ---
pt O2 sat decreased to 84 % while sleeping. pt placed on 2L NC. MD Cerna notified. aware of pts BP
[2024-07-25] MEDS: HEPARIN SODIUM 5,000 UNIT/ML VIAL 5000 UNIT SUBCUT (20:43)
[2024-07-25] MEDS: 0.9 % SODIUM CHLORIDE 1000ML 1,000 ML 50 ML IV (20:45)
[2024-07-25] MEDS: MORPHINE 2MG/ML SYRINGE 2 MG IV (22:50)
--- NOTE | 2024-07-25 23:20 | PC.NURSE ---
Addendum entered by Aniya Graham RN 07/26/24 05:58: Amend: *Spray Unit Feeder (S Call RN) Addendum entered by Aniya Graham RN 07/26/24 05:40: At this time, Manuel Shields MD is seeing the patient at the bedside. Addendum entered by Aniya Graham RN 07/26/24 04:00: Manual blood pressure was taken by me this morning, along with resuming the automatic vital sign assessment. Manual blood pressure reading was 80/51 (MAP 60). Patient stated that she does not feel any differences since her arrival to the second floor. Spray Unit Feeder (S Call GEOGRAPHIC ANALYST) also aware of situation. Vital sign assessments continue to circulate every 15 minutes, documented accordingly. Patient requested to drink coffee this morning, remains pleasantly alert and oriented x4 since initial assessment. She ambulates independently at baseline; standby assistance/supervision implemented for safety concerns, patient is understanding. She remains resting supine in bed without apparent distress. Call light within reach. Addendum entered by Aniya Graham RN 07/26/24 02:35: Manuel Shields MD was paged at this time to inform him that the patient's blood pressure readings continue to remain hypotensive since increase in normal saline rate at 23:30 (see vital sign assessments for documentation). Heart rate also remains within the 50s bpm. Oxygen saturations > 90% on 2 L of oxygen, respirations even and unlabored (16 to 18 breaths per minute). Normal saline continues to infuse at 75 mL/hr. Patient does not express further dizziness upon additional rounding. Manuel Shields MD stated to continue to monitor the patient's vital signs. Charge nurse (Jovanny Salinas RN) also aware of situation. No other interventions/orders received. Original Note: Manuel Shields MD was paged at this time to notify him about the patient's consistently low blood pressure readings + MAPs since arrival to the floor (see vital sign assessment trends). Patient's heart rate has remained between 57 bpm to 60 bpm as well. Since 20:45, normal saline has been infusing at 50 mL/hr; this was relayed to him as well. The patient is also currently resting in bed without apparent distress. Manuel Shields MD stated to increase the normal saline infusion to 75 mL/hr for now, and continue to monitor the patient's blood pressure accordingly. No other interventions/orders received at this time.
[2024-07-26] VITALS (28 sets, daily range): BP systolic 74–146; BP diastolic 36–69; PULSE 51–69; RESP 16–20; TEMP 36.4–36.8; O2SAT 91–97; BMI 32.8
--- NOTE | 2024-07-26 06:31 | P.HP_ITS ---
History of Present Illness *Admission Date: 07/25/24 *Reason for visit:: Abdominal Pain *History of present illness: Patient is a 54-year-old female who presents to the hospital due to complaint of abdominal pain for the past 2 to 3 days. According to the patient she has associated nausea and vomiting as well as diarrhea. Patient mentions she has history of multiple abdominal surgeries in the past. Patient denied fevers chills chest pain shortness of breath. On further evaluation patient was found to have ROJELIO as well as hyponatremia, hypokalemia PFSH PFS Disclaimer: The information contained in this section may have been updated after the patient was seen, as this information can be updated by other users. Medical History Migraine headache Hypertension Hyperlipidemia Depression Asthma Anxiety Nausea & vomiting URI (upper respiratory infection) Otitis media Right shoulder pain Tobacco abuse disorder Tobacco abuse counseling Screening for lung cancer History of environmental allergies Dyspnea on exertion Smoking greater than 30 pack years Sore throat Rash COPD (chronic obstructive pulmonary disease) Surgical History Hx of hernia repair History of cholecystectomy History of carpal tunnel release bilateral Family History Other Cancer Heart attack Stroke Social History (Updated 07/25/24 @ 20:24 by Mary Salinas RN) Smoking Status: Current every day smoker tobacco type: cigarettes packs per day: 1 second hand exposure: Yes alcohol intake: former substance use type: denies use current occupational status: disabled Travel in the last 8 weeks?: None household members: spouse and significant other housing: house lives independently: No marital status: education level: high school current occupational exposures/hazards: No caffeine: Yes do you feel safe at home: Yes victim of physical abuse: No victim of emotional abuse: No victim of sexual abuse: No would you like helpful sources: No Have you lived/traveled outside [place] in past 30 days?: No Contact w/someone who lives/traveled outside [place] past 30 days?: No Exposure to someone with infectious disease in past 14 days?: No Do you have a fever (greater than 100.4 F or 38 C)?: No Have you tested positive for COVID-19?: No Exposed to someone with COVID-19 in past 14 days?: No Do you have a sore throat?: No Do you have a cough?: No Do you have any weakness?: No Do you have any diarrhea?: No Are you experiencing any unusual bleeding?: No Do you have any muscle aches/pain?: No Do you have any abdominal pain?: No Are you experiencing loss of taste or smell?: No Other Medical History Have you received the Flu Vaccine for this season: No Have you received the Pneumonia Vaccine: No Review of Systems Review of Systems Review of systems:: pertinent systems reviewed and negative unless documented below Meds Home Medications and Allergies Home Medications ?Medication ?Instructions ?Recorded ?Confirmed ?Type ipratropium 0.5 mg-albuterol 3 mg 3 ml inhalation Q6H PRN shortness 05/26/22 07/25/24 Rx (2.5 mg base)/3 mL nebulization of breath or wheezing #90 mL soln fluticasone fur. 100 mcg-umeclid 1 inh inhalation PABLITO Y soa 10/12/22 07/25/24 History 62.5 mcg-vilant 25 mcg inhalat.powder (Trelegy Ellipta) albuterol sulfate 90 mcg/actuation 1 inh inhalation Q6 H PRN shortness 01/31/24 07/25/24 Rx aerosol inhaler of breath or wheezing 90 day s #8.5 grams loratadine 10 mg tablet 10 mg PO DAILY allergies #10 0 tabs 01/31/24 07/25/24 Rx atorvastatin 40 mg tablet 80 mg (2 x 40 mg) PO HS #90 tabs 06/24/24 07/25/24 Rx naproxen 500 mg tablet 500 mg PO BID PRN pain #60 t abs 06/24/24 07/25/24 Rx cyanocobalamin (vitamin B-12) 1,000 mcg SQ MONTHLY 4 m onths #4 mL 07/08/24 07/25/24 Rx 1,000 mcg/mL injection solution gabapentin 800 mg tablet 800 mg PO QID Pain 30 days # 120 07/08/24 07/25/24 Rx tabs escitalopram oxalate 10 mg tablet 10 mg PO DAILY mood #90 tabs 07/21/24 07/25/24 Rx (Lexapro) amlodipine 10 mg-benazepril 40 mg 10 - 40 cap PO DAILY 07/25/24 07/25/24 History capsule bupropion HCl 150 mg 24 hr tablet, 150 mg PO DAILY 07/25/24 History extended release omeprazole 40 mg capsule,delayed 40 mg PO BID 07/25/24 07/25/24 History release New Prescriptions to Start Prescriptions: Allergies Allergy/AdvReac Type Severity Reaction Status Date / Time No Known Allergies Allergy Verified 07/25/24 14:12 Exam Data for Last 24 hours Vital signs and Labs for Last 24 Hours: Temp Pulse Resp BP Pulse Ox O2 Del Method O2 Flow Rate 97.9 F 52 L 16 77/45 L 92 L Nasal Cannula 2 07/26/24 04:00 07/26/24 06:00 07/26/24 06:00 07/26/24 06:00 07/26/24 06:00 07/26/24 06:00 07/26/24 06:00 Laboratory Results - last 24 hr 07/25/24 15:03: WBC 9.1, RBC 4.66, Hgb 14.2, Hct 42.9, MCV 92.1, MCH 30.5, MCHC 33.1, RDW 13.2, Plt Count 252, MPV 10.6 H, Neut % (Auto) 51.0, Lymph % (Auto) 35.0, [place] % (Auto) 11.2 H, Eos % (Auto) 2.1, Baso % (Auto) 0.3, Neut # (Auto) 4.6, Lymph # (Auto) 3.2, [place] # (Auto) 1.0, Eos # (Auto) 0.2, Baso # (Auto) 0.0, Sodium 133 L, Potassium 3.3 L, Chloride 99, Carbon Dioxide 25, Anion Gap 12.3, BUN 51 H, Creatinine 1.70 H, Estimated Creat Clear 48, Estimated GFR 31 L, Est GFR ( Amer) 38 L, Glucose 120 H, Calcium 8.7, Magnesium 1.8, Total Bilirubin 1.3, AST 28, ALT 19, Alkaline Phosphatase 78, Total Protein 6.9, Albumin 4.2, Globulin 2.7, Albumin/Globulin Ratio 1.6, Lipase 50 I & O for Last 24 hours: Intake & Output 07/23/24 07/24/24 07/25/24 07/26/24 23:59 23:59 23:59 23:59 Intake Total 903 / 903 Output Total 400 / 400 Balance -400 / 503 903 / 903 Weight 81.647 kg 86.636 kg Constitutional Constitutional: no acute distress *Routine HEENT Exam Head: Present normocephalic Eye: Present EOMI and PERRL ENT: Present mucous membranes moist *Routine Neck Exam Neck: Present supple; Absent lymphadenopathy *Routine Respiratory Exam Respiratory: Present CTA bilaterally *Routine Cardiovascular Exam Cardiovascular: Present RRR *Routine Abdominal Exam Abdominal: Present soft and normoactive bowel sounds; Absent tenderness *Routine Rectal Exam Rectal:: deferred *Routine Genitalia Exam Genitalia:: deferred *Routine Extremities Exam Extremities: Absent cyanosis, clubbing or edema *Routine Skin Exam Skin: Present warm; Absent rash *Routine Neurological Exam Neurological: Present alert and oriented X3 Assessment and Plan *Assessment and plan (1) ROJELIO (acute kidney injury): Status: Acute Category: Medical Code(s): N17.9 - Acute kidney failure, unspecified (2) Hypertension: Status: Chronic Category: Medical Code(s): I10 - Essential (primary) hypertension (3) Hyperlipidemia: Status: Acute Category: Medical Code(s): E78.5 - Hyperlipidemia, unspecified (4) Depression: Status: Acute Category: Medical Code(s): F32.A - Depression, unspecified (5) Asthma: Status: Acute Category: Medical Code(s): J45.909 - Unspecified asthma, uncomplicated (6) COPD (chronic obstructive pulmonary disease): Status: Chronic Qualifiers: COPD type: unspecified COPD Qualified Code(s): J44.9 - Chronic obstructive pulmonary disease, unspecified Category: Medical Code(s): J44.9 - Chronic obstructive pulmonary disease, unspecified Plan Patient is a 54-year-old female who presents to the hospital due to complaint of abdominal pain for the past 2 to 3 days. According to the patient she has associated nausea and vomiting as well as diarrhea. Patient mentions she has history of multiple abdominal surgeries in the past. Patient denied fevers chills chest pain shortness of breath. On further evaluation patient was found to have ROJELIO as well as hyponatremia, hypokalemia Assessment and plan Acute kidney injury likely prerenal Diarrhea likely viral gastroenteritis, rule out accompanying GI bleed Hypokalemia Hyponatremia Start IV normal saline Monitor creatinine CT abdomen pelvis performed did not show findings suggestive of gastroenteritis Patient wants to try regular food, will start regular food Avoid nephrotoxic medications Monitor and replace electrolytes Check a stool occult Started on Protonix preemptively Monitor hemoglobin Chronic medical conditions mood disorder Hypertension Hyperlipidemia Depression Asthma Resume home albuterol, gabapentin DVT prophylaxis-heparin
[2024-07-26 07:08] LABS: Basophils % 0.3 % (0.1-2.0); Eosinophils # 0.2 Kmm3 (0.0-0.4); Eosinophils % 2.7 % (0.1-12.0); Hematocrit 36.9 % (37.0-47.0); Immature Granulocytes # 0.04 10^3uL; Immature Granulocytes % 0.6 %; Lymphocytes # 2.4 K/mm3 (0.7-4.5); Lymphocytes % 35.3 % (10-50); Mean Corpuscular HGB Conc 31.4 g/dL (31.8-35.4); Mean Corpuscular Hemoglobin 29.3 pg (27.0-31.2); Mean Corpuscular Volume 93.2 fl (81-99); Mean Platelet Volume 10.8 fl (7.4-10.4); Monocytes # 0.6 K/mm3 (0.1-1.0); Monocytes % 9.4 % (1.7-9.3); Neutrophils # 3.5 K/mm3 (1.8-7.8); Neutrophils % 51.7 % (37.0-80.0); Nucleated Red Blood Cells # 0 10^3/uL; Nucleated Red Blood Cells % 0 %; Platelet Count 200 K/mm3 (142-424); Red Blood Count 3.96 M/mm3 (4.20-5.40); Red Cell Distribution Width 12.9 % (11.5-17.5); Red Cell Distribution Width-SD 44.2 fL; White Blood Count 6.7 K/mm3 (4.8-10.8)
[2024-07-26 07:14] LABS: Albumin Level 3.4 g/dl (3.5-5.0); Chloride 105 mmol/L (98-107); Sodium 136 mmol/L (136-145)
[2024-07-26 07:15] LABS: Potassium 3.5 mmoL/L (3.5-5.1)
[2024-07-26 07:17] LABS: Alanine Aminotransferase 14 U/L (12-78); Albumin/Globulin Ratio 1.5 (1.1-1.8); Alkaline Phosphatase 59 U/L (38-126); Anion Gap 8.5 mEq/L (5-15); Aspartate Amino Transferase 24 U/L (14-36); Bilirubin,Total 0.4 mg/dl (0.2-1.3); Blood Urea Nitrogen 39 mg/dl (7-17); Calcium 8.4 mg/dl (8.4-10.2); Carbon Dioxide 26 mmol/L (22.0-30.0); Creatinine Clearance Estimated 78 mL/min (50-200); Estimated Glomerular Filt Rate 51 ml/min (>60); GFR (African American) 62 ML/MIN (>60); Globulin 2.3 g/dL (1.3-3.2); Glucose 113 mg/dl (74-100); Total Protein,Serum 5.7 g/dl (6.3-8.2)
[2024-07-26 07:39] LABS: Hemoglobin 11.6 g/dL (12.2-16.2)
--- NOTE | 2024-07-26 08:49 | HMH.PHAINT1 ---
Pharmacy Intervention Comments: MEDICATION RECONCILIATION COMPLETED ON PATIENT USING EXTERNAL FILL HISTORY FROM PHARMACY. -JOSSE HARO, LANCED
[2024-07-26] MEDS: FLUTICASONE/UMECLIDIN/VILANTER 100/62.5/25MCG INHALER 1 PUFF IH (09:05)
[2024-07-26] MEDS: HEPARIN SODIUM 5,000 UNIT/ML VIAL 5000 UNIT SUBCUT (09:23)
[2024-07-26] MEDS: ESCITALOPRAM 10MG TABLET 10 MG PO (09:24)
[2024-07-26] MEDS: GABAPENTIN 800MG TABLET 800 MG PO (09:24)
[2024-07-26] MEDS: LORATADINE 10MG TABLET 10 MG PO (09:24)
[2024-07-26] MEDS: 0.9 % SODIUM CHLORIDE 1000ML 1,000 ML 500 ML IV (09:24)
[2024-07-26] MEDS: PANTOPRAZOLE 40MG TABLET 40 MG PO (09:24)
[2024-07-26] MEDS: buPROPion HCl SR 150MG TAB 150 MG PO (09:24)
[2024-07-26] MEDS: ONDANSETRON 4MG/2ML VIAL 4 MG IV ×2 (09:42→14:50)
[2024-07-26] MEDS: MORPHINE 2MG/ML SYRINGE 2 MG IV ×2 (09:42→12:16)
--- NOTE | 2024-07-26 09:45 | PC.NURSE ---
Pt c/o increasing abdominal pain 09/21. Shabbir Pantoja APRN at bedside to assess pt, give ok to proceed with NG tube at this time.
[2024-07-26 10:26] LABS: Adenovirus F 40/41, stool Not Detected (NotDetected); Astrovirus Not Detected (NotDetected); Campylobacter Not Detected (NotDetected); Clostridium Difficile A/B, PCR Not Detected (NotDetected); Cryptosporidium Not Detected (NotDetected); Cyclospora Cayetanesis Not Detected (NotDetected); Entamoeba histolytica Not Detected (NotDetected); Enteroaggregative E coli Not Detected (NotDetected); Enteropathogenic E coli Not Detected (NotDetected); Giardia lamblia Not Detected (NotDetected); Microscopic, Urine URINE MICROSCOPIC (MICROSCOPIC); Norovirus Not Detected (NotDetected); Plesimonas Shigalloides, PCR Not Detected (NotDetected); Rotavirus A Not Detected (NotDetected); Salmonella, PCR Not Detected (NotDetected); Sapovirus Not Detected (NotDetected); Shiga-like toxin E coli Not Detected (NotDetected); Shigella Enterovasive E coli Not Detected (NotDetected); Vibrio Cholerae Not Detected (NotDetected); Vibrio, PCR Not Detected (NotDetected); Yersinia Entercolitica, PCR Not Detected (NotDetected)
[2024-07-26 10:32] LABS: Appearance,Urine CLEAR (Clear); Bilirubin,Urine Negative (Negative); Blood, Urine Negative (Negative); Color,Urine YELLOW (Yellow); Glucose,Urine (UA) Negative (Negative); Ketones,Urine Negative (Negative); Leukocyte Esterase,Urine Negative (Negative); Nitrate,Urine Negative (Negative); Protein,Urine Negative (Negative); Specific Gravity, Urine <= 1.005 (1.005-1.030); Urobilinogen,Urine 0.2 EU/dl (0.2)
[2024-07-26 10:45] LABS: Bacteria,Urine 2+ /lpf
[2024-07-26 10:46] LABS: Occult Blood,Stool Negative (Negative)
[2024-07-26 10:46] LABS: WBC,Urine Occasional #/hpf (0-3)
[2024-07-26 12:47] LABS: Enterotoxigenic E coli Detected (NotDetected)
--- NOTE | 2024-07-26 14:38 | XR_ITS ---
PROCEDURE INFORMATION: Exam: XR Abdomen Exam date and time: 07/26/2024 2:54 PM Age: 54 years old Clinical indication: Abdominal pain; Additional info: Lower abdominal pain TECHNIQUE: Imaging protocol: Radiologic exam of the abdomen. Views: Frontal supine view of the abdomen. 1 View. COMPARISON: CT ABDOMEN PELVIS W CON 07/25/2024 4:07 PM FINDINGS: Gastrointestinal tract: Multiple loops of dilated air-filled small bowel consistent with small bowel obstruction. This was present on the CT yesterday. Bones/joints: Degenerative changes in the lumbar spine IMPRESSION: Multiple loops of dilated air-filled small bowel consistent with small bowel obstruction. This was present on the CT yesterday.
[2024-07-26] MEDS: KETOROLAC 30MG/ML VIAL 30 MG IV ×2 (14:49→20:57)
[2024-07-26] MEDS: LEVOFLOXACIN/D5W 750 MG/150 ML 750 MG/150 ML PIGGYBACK 100 MG IV (14:50)
[2024-07-26] MEDS: DICYCLOMINE 10MG CAPSULE 40 MG PO (14:50)
--- NOTE | 2024-07-26 14:59 | PC.NURSE ---
Aox 4, up with assistance times one, emesis times one with complaints of nausea and abd pain, on RA, 20g R AC with NS @ 75, bolus of fluid given today for low bp's this am, KUB done.
--- NOTE | 2024-07-26 17:53 | PC.NURSE ---
Told per Dr. West the patient looks comfortable at the moment and resting. If this changes tonight and symptoms return of abd pain and nausea then an order is in the computer for the nurse to place a NG tube.
--- NOTE | 2024-07-26 19:52 | XR_ITS ---
PROCEDURE INFORMATION: Exam: XR Abdomen Exam date and time: 07/26/2024 7:51 PM Age: 54 years old Clinical indication: Device placement; Gi device; Nasogastric tube; Additional info: Ng TECHNIQUE: Imaging protocol: Radiologic exam of the abdomen. Views: Frontal supine view of the abdomen. 1 View. COMPARISON: CR XR KUB 07/26/2024 2:54 PM FINDINGS: Tubes, catheters and devices: Esophageal catheter at the proximal stomach Gastrointestinal tract: Mild diffuse gaseous distension of small bowel slightly improved from previous exam Bones/joints: Unremarkable. IMPRESSION: Esophageal catheter is in place. Improved small bowel dilation.
--- NOTE | 2024-07-26 20:02 | EXP.EVENT.NO ---
problem: Making rounds and talking with the patient and nurse. Patient stating she was extremely uncomfortable. That her abdomen hurt. That she was willing to accept an NG. exam : Patient is alert oriented but in physical distress of abdominal pain. Abdomen is rounded firm distended. plan: Patient had already been made n.p.o. we let her know she could have a few ice chips to keep her mouth moist. NG tube was placed and almost immediately 600 cc out. KUB showed that there was a lot less small bowel dilation from the KUB that was done at approximately 1700 today. Will continue to monitor patient for comfort and vomiting. Noting that the patient has been having bowel movements diarrhea. Patient did complain of sore throat so Chloraseptic spray has been ordered. 2100 of Pepcid IV started and other medications held until NG tube can be removed
[2024-07-26] MEDS: FAMOTIDINE 20MG/2ML VIAL 20 MG IV (20:56)
[2024-07-26] MEDS: SODIUM CHLORIDE 0.9% 10ML VIAL 8 ML IV (20:57)
[2024-07-26] MEDS: PROMETHAZINE HCL 25MG/ML 1ML VIAL 25 MG IV (23:31)
[2024-07-26] MEDS: SODIUM CHLORIDE 0.9% 25ML BAG 25 ML IV (23:31)
[2024-07-27] VITALS: BP 109/63; PULSE 70; RESP 19; TEMP 36.9; O2SAT 89
[2024-07-27 01:00] VITALS: O2SAT 92
[2024-07-27] MEDS: 0.9 % SODIUM CHLORIDE 1000ML 1,000 ML 75 ML IV (03:22)
[2024-07-27 04:00] VITALS: BP 112/54; PULSE 73; RESP 16; TEMP 36.8; O2SAT 95; BMI 32.8
[2024-07-27 04:16] LABS: Occult Blood,Gastric Fluid Positive (Negative)
--- NOTE | 2024-07-27 05:57 | PC.NURSE ---
Pt NG tube placed @ 0940, measuring 54 cm in pt right nare, and connected to low wall suction. Pt tolerated well, gastric output noted, auscultation and KUB to confirm placement completed. Pt has had 750 of dark brown gastric drainage this shift, gastric occult completed and resulted positive. Pt admits to pain relief after removing gastric drainage, pt is currently tolerating NG on intermittent suction at this time.
[2024-07-27 08:00] VITALS: BP 113/66; PULSE 68; RESP 16; TEMP 36.8; O2SAT 97
[2024-07-27] MEDS: FLUTICASONE/UMECLIDIN/VILANTER 100/62.5/25MCG INHALER 1 PUFF IH (08:56)
[2024-07-27] MEDS: FAMOTIDINE 20MG/2ML VIAL 20 MG IV ×2 (08:59→20:29)
[2024-07-27 09:07] LABS: Albumin Level 2.9 g/dl (3.5-5.0); Chloride 108 mmol/L (98-107); Potassium 3.6 mmoL/L (3.5-5.1); Sodium 137 mmol/L (136-145)
[2024-07-27 09:08] LABS: Basophils # 0.1 K/mm3 (0-0.2); Basophils % 0.7 % (0.1-2.0); Eosinophils % 0.3 % (0.1-12.0); Hemoglobin 12.2 g/dL (12.2-16.2); Immature Granulocytes # 0.05 10^3uL; Immature Granulocytes % 0.7 %; Lymphocytes # 1.3 K/mm3 (0.7-4.5); Lymphocytes % 17.9 % (10-50); Mean Corpuscular Hemoglobin 30.3 pg (27.0-31.2); Mean Platelet Volume 10.5 fl (7.4-10.4); Monocytes # 0.9 K/mm3 (0.1-1.0); Monocytes % 11.9 % (1.7-9.3); Neutrophils # 5.1 K/mm3 (1.8-7.8); Neutrophils % 68.5 % (37.0-80.0); Nucleated Red Blood Cells # 0 10^3/uL; Nucleated Red Blood Cells % 0 %; Platelet Count 200 K/mm3 (142-424); Red Blood Count 4.02 M/mm3 (4.20-5.40); Red Cell Distribution Width 12.8 % (11.5-17.5); White Blood Count 7.4 K/mm3 (4.8-10.8)
[2024-07-27 09:10] LABS: Alanine Aminotransferase 14 U/L (12-78); Albumin/Globulin Ratio 1.3 (1.1-1.8); Alkaline Phosphatase 59 U/L (38-126); Anion Gap 6.6 mEq/L (5-15); Aspartate Amino Transferase 25 U/L (14-36); Bilirubin,Total 0.2 mg/dl (0.2-1.3); Blood Urea Nitrogen 21 mg/dl (7-17); Calcium 7.8 mg/dl (8.4-10.2); Carbon Dioxide 26 mmol/L (22.0-30.0); Creatinine Clearance Estimated 144 mL/min (50-200); Estimated Glomerular Filt Rate 103 ml/min (>60); GFR (African American) 125 ML/MIN (>60); Globulin 2.3 g/dL (1.3-3.2); Glucose 119 mg/dl (74-100); Magnesium 1.9 mg/dl (1.6-2.3); Total Protein,Serum 5.2 g/dl (6.3-8.2)
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
[2024-07-27] MEDS: LEVOFLOXACIN/D5W 750 MG/150 ML 750 MG/150 ML PIGGYBACK 100 MG IV (13:37)
[2024-07-27 16:00] VITALS: BP 125/73; PULSE 69; RESP 16; TEMP 36.6; O2SAT 92
--- NOTE | 2024-07-27 16:20 | EXP.PN ---
Subjective *Date: 07/27/24 *Time: 16:20 Interval history: Patient feeling much better after NG tube was placed, removed today after consulting with general surgery. Will consider advancing diet tomorrow. Exam Data for Last 24 hours Vital signs and Labs for Last 24 Hours: Temp Pulse Resp BP Pulse Ox O2 Del Method O2 Flow Rate 98 F 69 16 125/73 92 L Room Air 2 07/27/24 16:00 07/27/24 16:00 07/27/24 16:07/27/24 16:07/27/24 16:07/27/24 16:00 07/27/24 10:59 Laboratory Results - last 24 hr 07/27/24 03:42: Gastric Occult Blood Positive 07/27/24 08:40: WBC 7.4, RBC 4.02 L, Hgb 12.2, Hct 37.0, MCV 92.0, MCH 30.3, MCHC 33.0, RDW 12.8, Plt Count 200, MPV 10.5 H, Neut % (Auto) 68.5, Lymph % (Auto) 17.9, [place] % (Auto) 11.9 H, Eos % (Auto) 0.3, Baso % (Auto) 0.7, Neut # (Auto) 5.1, Lymph # (Auto) 1.3, [place] # (Auto) 0.9, Eos # (Auto) 0.0, Baso # (Auto) 0.1, Sodium 137, Potassium 3.6, Chloride 108 H, Carbon Dioxide 26, Anion Gap 6.6, BUN 21 H D, Creatinine 0.60 D, Estimated Creat Clear 144, Estimated GFR 103, Est GFR ( Amer) 125 D, Glucose 119 H, Calcium 7.8 L, Magnesium 1.9, Total Bilirubin 0.2, AST 25, ALT 14, Alkaline Phosphatase 59, Total Protein 5.2 L, Albumin 2.9 L D, Globulin 2.3, Albumin/Globulin Ratio 1.3 I & O for Last 24 hours: Intake & Output 07/24/24 07/25/24 07/26/24 07/27/24 23:59 23:59 23:59 23:59 Intake Total 2548 / 2548 600 / 600 Output Total 400 / 400 1700 / 1700 900 / 900 Balance -400 / 503 848 / 848 -300 / -300 Weight 81.647 kg 86.636 kg 87.175 kg Microbiology Reports for the Last 24 Hours: Microbiology 07/26/24 10:17 Urine,Clean Catch Urine Culture - Preliminary Constitutional Constitutional: no acute distress *Routine HEENT Exam Head: Present normocephalic Eye: Present EOMI and PERRL ENT: Present mucous membranes moist *Routine Neck Exam Neck: Present supple; Absent lymphadenopathy *Routine Respiratory Exam Respiratory: Present CTA bilaterally *Routine Cardiovascular Exam Cardiovascular: Present RRR *Routine Abdominal Exam Abdominal: Present soft, normoactive bowel sounds and tenderness *Routine Extremities Exam Extremities: Absent cyanosis, clubbing or edema *Routine Skin Exam Skin: Present warm; Absent rash *Routine Neurological Exam Neurological: Present alert and oriented X3 Assessment and Plan *Assessment and plan (1) ROJELIO (acute kidney injury): Status: Acute Category: Medical Code(s): N17.9 - Acute kidney failure, unspecified (2) Hypertension: Status: Chronic Category: Medical Code(s): I10 - Essential (primary) hypertension (3) Hyperlipidemia: Status: Acute Category: Medical Code(s): E78.5 - Hyperlipidemia, unspecified (4) Depression: Status: Acute Category: Medical Code(s): F32.A - Depression, unspecified (5) Asthma: Status: Acute Category: Medical Code(s): J45.909 - Unspecified asthma, uncomplicated (6) COPD (chronic obstructive pulmonary disease): Status: Chronic Qualifiers: COPD type: unspecified COPD Qualified Code(s): J44.9 - Chronic obstructive pulmonary disease, unspecified Category: Medical Code(s): J44.9 - Chronic obstructive pulmonary disease, unspecified Plan Vivi Salas is a 54-year-old female with multiple abdominal surgeries presented with nausea/vomiting/diarrhea, abdominal pain and was admitted for ileus versus partial SBO from ETEC enterocolitis. #Ileus versus partial SBO #Abdominal pain #Nausea/vomiting/diarrhea #ETEC enterocolitis ? Presented with nausea/vomiting/diarrhea, abdominal pain. CT abdomen and subsequent KUB suggestive of ileus versus partial SBO. History of multiple abdominal surgeries. ? Given that patient has been having bowel movements/diarrhea, likely ileus. ? NG tube placed was placed yesterday due to worsening abdominal pain with about 600 cc of gastric fluid output and significant improvement of abdominal pain. ? Diarrhea panel also positive for ETEC enterocolitis likely exacerbating ileus. ? NG tube was discontinued today after discussing with general surgery who has been consulted. ? Continue ice chips and sips for now, will consider advancement of diet tomorrow. ? Continue LR at 75 mL/h. ? Continue levofloxacin day 2 for ETEC due to severity of symptoms. ? Continue PPI for GI prophylaxis. #Hypertension ? Hold home meds as BP stable at this time. #Anxiety/depression ? Continue home bupropion, escitalopram. #GERD ? Continue home PPI. Full code DVT prophylaxis: Lovenox 40 mg
[2024-07-27 20:00] VITALS: BP 112/67; PULSE 70; RESP 16; TEMP 36.4; O2SAT 96
[2024-07-27] MEDS: SODIUM CHLORIDE 0.9% 10ML VIAL 8 ML IV (20:30)
[2024-07-27] MEDS: ACETAMINOPHEN 1,000MG/100ML VIAL 1000 MG IV (22:44)
[2024-07-28] VITALS: BP 106/67; PULSE 66; RESP 16; TEMP 36.4; O2SAT 93
[2024-07-28 04:00] VITALS: BP 115/64; PULSE 63; RESP 16; TEMP 36.7; O2SAT 94; BMI 33.1
[2024-07-28] MEDS: 0.9 % SODIUM CHLORIDE 1000ML 1,000 ML 75 ML IV (04:44)
--- NOTE | 2024-07-28 05:36 | PC.NURSE ---
Pt is A&Ox4 and currently on 2L of O2 and sating @ 93%. Pt denies abdominal pain this shift however did c/o a EASLEY and was treated per APR. Pt has tolerated fluids well this shift, and has rested well this shift.
[2024-07-28] MEDS: FLUTICASONE/UMECLIDIN/VILANTER 100/62.5/25MCG INHALER 1 PUFF IH (06:16)
[2024-07-28 08:00] VITALS: BP 113/64; PULSE 73; RESP 17; TEMP 36.8; O2SAT 92
[2024-07-28 08:22] LABS: Basophils % 0.5 % (0.1-2.0); Eosinophils # 0.2 Kmm3 (0.0-0.4); Eosinophils % 2.6 % (0.1-12.0); Immature Granulocytes # 0.22 10^3uL; Lymphocytes % 27.2 % (10-50); Mean Corpuscular HGB Conc 33.3 g/dL (31.8-35.4); Mean Corpuscular Hemoglobin 30.6 pg (27.0-31.2); Mean Corpuscular Volume 91.9 fl (81-99); Mean Platelet Volume 10.5 fl (7.4-10.4); Monocytes # 0.9 K/mm3 (0.1-1.0); Monocytes % 12.6 % (1.7-9.3); Neutrophils % 54.1 % (37.0-80.0); Nucleated Red Blood Cells # 0 10^3/uL; Nucleated Red Blood Cells % 0 %; Platelet Count 188 K/mm3 (142-424); Red Blood Count 3.59 M/mm3 (4.20-5.40); Red Cell Distribution Width 12.7 % (11.5-17.5); Red Cell Distribution Width-SD 42.8 fL; White Blood Count 7.5 K/mm3 (4.8-10.8)
[2024-07-28 08:28] LABS: Albumin Level 2.7 g/dl (3.5-5.0); Chloride 108 mmol/L (98-107); Potassium 3.5 mmoL/L (3.5-5.1); Sodium 136 mmol/L (136-145)
[2024-07-28 08:31] LABS: Alanine Aminotransferase 12 U/L (12-78); Albumin/Globulin Ratio 1.2 (1.1-1.8); Alkaline Phosphatase 56 U/L (38-126); Anion Gap 5.5 mEq/L (5-15); Aspartate Amino Transferase 20 U/L (14-36); Bilirubin,Total 0.3 mg/dl (0.2-1.3); Blood Urea Nitrogen 13 mg/dl (7-17); Carbon Dioxide 26 mmol/L (22.0-30.0); Creatinine Clearance Estimated 175 mL/min (50-200); Estimated Glomerular Filt Rate 128 ml/min (>60); GFR (African American) 154 ML/MIN (>60); Globulin 2.3 g/dL (1.3-3.2)
[2024-07-28 08:32] LABS: Calcium 7.9 mg/dl (8.4-10.2); Glucose 93 mg/dl (74-100); Magnesium 1.8 mg/dl (1.6-2.3)
[2024-07-28] MEDS: buPROPion HCl SR 150MG TAB 150 MG PO (09:53)
[2024-07-28] MEDS: ESCITALOPRAM 10MG TABLET 10 MG PO (09:53)
[2024-07-28] MEDS: FAMOTIDINE 20MG/2ML VIAL 20 MG IV (09:54)
[2024-07-28] MEDS: ENOXAPARIN 40MG/0.4ML SYRINGE 40 MG SUBCUT (09:55)
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
--- NOTE | 2024-07-28 10:48 | P.PN_ITS ---
Subjective Narrative: Patient states that she feels good . Had her nasogastric tube removed yesterday and started on clear liquids this morning which she is tolerating very well. She has had some diarrhea. Exam Data for Last 24 hours Vital signs and Labs for Last 24 Hours: Temp Pulse Resp BP Pulse Ox O2 Del Method O2 Flow Rate 98.3 F 73 17 113/64 92 L Room Air 2 07/28/24 08:00 07/28/24 08:00 07/28/24 08:00 07/28/24 08:00 07/28/24 08:00 07/28/24 10:34 07/28/24 06:44 FiO2 28 07/27/24 19:05 Laboratory Results - last 24 hr 07/26/24 10:17: Urine Color Yellow, Urine Appearance Clear, Urine pH 6.0, Ur Specific [place] <= 1.005, Urine Protein Negative, Urine Glucose (UA) Negative, Urine Ketones Negative, Urine Blood Negative, Urine Nitrate Negative, Urine Bilirubin Negative, Urine Urobilinogen 0.2, Ur Leukocyte Esterase Negative, Urine RBC None, Urine WBC Occasional, Ur Squamous Epith Cells 10-20, Urine Bacteria 2+ 07/28/24 08:09: WBC 7.5, RBC 3.59 L, Hgb 11.0 L, Hct 33.0 L, MCV 91.9, MCH 30.6, MCHC 33.3, RDW 12.7, Plt Count 188, MPV 10.5 H, Neut % (Auto) 54.1, Lymph % (Auto) 27.2, [place] % (Auto) 12.6 H, Eos % (Auto) 2.6, Baso % (Auto) 0.5, Neut # (Auto) 4.0, Lymph # (Auto) 2.0, [place] # (Auto) 0.9, Eos # (Auto) 0.2, Baso # (Auto) 0.0, Sodium 136, Potassium 3.5, Chloride 108 H, Carbon Dioxide 26, Anion Gap 5.5, BUN 13 D, Creatinine 0.50 L, Estimated Creat Clear 175, Estimated GFR 128, Est GFR ( Amer) 154 D, Glucose 93 D, Calcium 7.9 L, Magnesium 1.8, Total Bilirubin 0.3, AST 20, ALT 12, Alkaline Phosphatase 56, Total Protein 5.0 L, Albumin 2.7 L, Globulin 2.3, Albumin/Globulin Ratio 1.2 I & O for Last 24 hours: Intake & Output 07/25/24 07/26/24 07/27/24 07/28/24 11:59 11:59 11:59 11:59 Intake Total 1023 / 1023 1525 / 1525 975 / 975 Output Total 850 / 850 2150 / 2150 250 / 250 Balance 173 / 173 -625 / -625 725 / 725 Weight 191 lb 192 lb 3 oz 194 lb Microbiology Reports for the Last 24 Hours: Microbiology 07/26/24 10:17 Urine,Clean Catch Urine Culture - Preliminary Gram Negative Rods Gram Negative Rods#2 *Routine Abdominal Exam Abdominal: Present soft Progress Note: A&P Assessment and plan (1) ROJELIO (acute kidney injury): Status: Acute (2) Hypertension: Status: Chronic (3) Hyperlipidemia: Status: Acute (4) Depression: Status: Acute (5) Asthma: Status: Acute (6) COPD (chronic obstructive pulmonary disease): Status: Chronic Assessment and Plan Assessment and Plan for All Diagnoses:: Likely ileus secondary to enterotoxigenic E. coli. Improving. No additional surgical recommendations at this time. Continue progressive diet advancement.
[2024-07-28 12:00] VITALS: BP 127/64; PULSE 65; RESP 17; TEMP 37.1; O2SAT 94
[2024-07-28] MEDS: levoFLOXacin 750 MG TABLET PO (13:33)
--- NOTE | 2024-07-29 10:16 | SW/DCPLANNER ---
Spoke with patient on the phone. Patient stated that she is feeling well. Patient Stated that she was able to get her medicine picked up.Patient stated that she is aware of her upcoming appointments. Patient stated that she has no concerns or questions at this time. Anand Santamaria
== END 2024-07-28 14:08 | disposition home or self-care (01) | DRG 372 ==
LOC: ER 15:20 → 2ND 07-26 05:10
PROVIDERS: Internal Medicine; Nurse Practitioner Family; Admitting Provider Student in an Organized Health Care Education/Training Program; Emergency Provider Emergency Medicine; PCP Family Medicine; Visit Provider Student in an Organized Health Care Education/Training Program
DX: A04.1 Enterotoxigenic Escherichia coli infection (principal); E87.1 Hypo-osmolality and hyponatremia; N17.9 Acute kidney failure, unspecified; K56.7 Ileus, unspecified; N39.0 Urinary tract infection, site not specified; F32.A Depression, unspecified; J44.9 Chronic obstructive pulmonary disease, unspecified; K21.9 Gastro-esophageal reflux disease without esophagitis; F41.9 Anxiety disorder, unspecified; I10 Essential (primary) hypertension; E78.5 Hyperlipidemia, unspecified; B96.1 Klebsiella pneumoniae [K. pneumoniae] as the cause of diseases classified elsewhere; F17.210 Nicotine dependence, cigarettes, uncomplicated; E87.6 Hypokalemia; Z87.828 Personal history of other (healed) physical injury and trauma; Z90.49 Acquired absence of other specified parts of digestive tract; Z79.899 Other long term (current) drug therapy
CPT/HCPCS: 36415; 74018; 74177; 80053; 81001; 82272; 83690; 83735; 85025; 87086; 87088; 87186; 87507; 94640; G0328; J0131; J1644; J1650; J1885; J1956; J2270; J2405; J2550; J7030; J7120; Q9967

== ENCOUNTER 2024-08-04 10:06 | Outpatient (CLI) | payer MEDICARE, OTHER, SELFPAY ==
[2024-08-04 17:05] LABS: Basophils # 0.1 K/mm3 (0-0.2); Basophils % 0.7 % (0.1-2.0); Eosinophils # 0.3 Kmm3 (0.0-0.4); Eosinophils % 3.3 % (0.1-12.0); Hematocrit 36.8 % (37.0-47.0); Hemoglobin 11.5 g/dL (12.2-16.2); Immature Granulocytes # 0.08 10^3uL; Immature Granulocytes % 0.9 %; Lymphocytes # 2.9 K/mm3 (0.7-4.5); Lymphocytes % 34.8 % (10-50); Mean Corpuscular HGB Conc 31.3 g/dL (31.8-35.4); Mean Corpuscular Hemoglobin 29.4 pg (27.0-31.2); Mean Corpuscular Volume 94.1 fl (81-99); Mean Platelet Volume 10.2 fl (7.4-10.4); Monocytes # 0.6 K/mm3 (0.1-1.0); Monocytes % 6.6 % (1.7-9.3); Neutrophils # 4.5 K/mm3 (1.8-7.8); Neutrophils % 53.7 % (37.0-80.0); Nucleated Red Blood Cells # 0 10^3/uL; Nucleated Red Blood Cells % 0 %; Platelet Count 344 K/mm3 (142-424); Red Blood Count 3.91 M/mm3 (4.20-5.40); Red Cell Distribution Width 13.6 % (11.5-17.5); Red Cell Distribution Width-SD 46.3 fL; White Blood Count 8.5 K/mm3 (4.8-10.8)
[2024-08-04 17:35] LABS: Albumin Level 3.2 g/dl (3.5-5.0); Chloride 103 mmol/L (98-107); Potassium 3.9 mmoL/L (3.5-5.1); Sodium 140 mmol/L (136-145)
[2024-08-04 17:38] LABS: Anion Gap 13.9 mEq/L (5-15); Blood Urea Nitrogen 7 mg/dl (7-17); Calcium 8.3 mg/dl (8.4-10.2); Carbon Dioxide 27 mmol/L (22.0-30.0); Estimated Glomerular Filt Rate 165 ml/min (>60); GFR (African American) 200 ML/MIN (>60); Glucose 100 mg/dl (74-100); Phosphorous 3.3 mg/dl (2.5-4.5)
== END 2024-08-04 23:59 | disposition home or self-care (01) ==
LOC: LAB.DROPOF 08-06 10:10
PROVIDERS: PCP Nurse Practitioner Family; Visit Provider Nurse Practitioner Family
DX: N17.9 Acute kidney failure, unspecified (principal); N39.0 Urinary tract infection, site not specified; B96.1 Klebsiella pneumoniae [K. pneumoniae] as the cause of diseases classified elsewhere
CPT/HCPCS: 80069; 85025; 87086

== ENCOUNTER 2024-08-11 10:50 | Outpatient (CLI) | payer MEDICARE, OTHER, SELFPAY ==
[2024-08-11 20:41] LABS: Chol/HDL Ratio 4.1 (1-3.5); Cholesterol 138 mg/dl (140-200); HDL Cholesterol 34 mg/dl (40-60); Triglycerides 195 mg/dl (30-150); VLDL Cholesterol 39 mg/dL (0-40)
[2024-08-11 20:52] LABS: Direct LDL Cholesterol 59.52 mg/dL (100-129)
== END 2024-08-11 23:59 | disposition home or self-care (01) ==
LOC: LAB.DROPOF 08-14 10:51
PROVIDERS: PCP Family Medicine; Visit Provider Family Medicine
DX: E78.5 Hyperlipidemia, unspecified (principal)
CPT/HCPCS: 80061

== ENCOUNTER 2025-02-09 10:16 | Outpatient (CLI) | payer MEDICARE, OTHER, SELFPAY ==
[2025-02-09 17:34] LABS: Hematocrit 40.9 % (37.0-47.0); Hemoglobin 13.2 g/dL (12.2-16.2); Immature Granulocytes % 0.5 %; Mean Corpuscular HGB Conc 32.3 g/dL (31.8-35.4); Mean Corpuscular Hemoglobin 30.3 pg (27.0-31.2); Mean Corpuscular Volume 94.0 fl (81-99); Nucleated Red Blood Cells % 0 %; Platelet Count 209 K/mm3 (142-424); Red Blood Count 4.35 M/mm3 (4.20-5.40); Red Cell Distribution Width-SD 45.7 fL; White Blood Count 7.4 K/mm3 (4.8-10.8)
[2025-02-09 18:39] LABS: Albumin Level 4.1 g/dl (3.5-5.0); Chloride 105 mmol/L (98-107); Potassium 4.1 mmoL/L (3.5-5.1); Sodium 139 mmol/L (136-145)
[2025-02-09 18:41] LABS: Alanine Aminotransferase 16 U/L (12-78); Aspartate Amino Transferase 24 U/L (14-36); Blood Urea Nitrogen 10 mg/dl (7-17); Creatinine,Serum 0.50 mg/dl (0.52-1.04); Estimated Glomerular Filt Rate 128 ml/min (>60); GFR (African American) 154 ML/MIN (>60)
[2025-02-09 18:42] LABS: Albumin/Globulin Ratio 1.6 (1.1-1.8); Alkaline Phosphatase 78 U/L (38-126); Anion Gap 11.1 mEq/L (5-15); Bilirubin,Total 0.2 mg/dl (0.2-1.3); Calcium 9.6 mg/dl (8.4-10.2); Carbon Dioxide 27 mmol/L (22.0-30.0); Cholesterol 196 mg/dl (140-200); Globulin 2.5 g/dL (1.3-3.2); Glucose 98 mg/dl (74-100); HDL Cholesterol 52 mg/dl (40-60); Total Protein,Serum 6.6 g/dl (6.3-8.2); Triglycerides 201 mg/dl (30-150)
[2025-02-09 19:14] LABS: Thyroid Stimulating Hormone 2.41 uIU/mL (0.465-4.68)
== END 2025-02-09 23:59 | disposition home or self-care (01) ==
LOC: LAB.DROPOF 02-10 11:59
PROVIDERS: PCP Family Medicine; Visit Provider Family Medicine
DX: E78.5 Hyperlipidemia, unspecified (principal); I10 Essential (primary) hypertension; I95.9 Hypotension, unspecified
CPT/HCPCS: 80053; 80061; 84443; 85025